=== PATIENT | female | born 1990 | race American Indian/Alaskan Native ===

== ENCOUNTER 2020-04-15 08:50 | Emergency (ER) | payer OTHER ==
[2020-04-15 08:58] VITALS: BP 141/87
[2020-04-15 09:23] LABS: Bacteria,Urine 1+ /HPF (Negative); Bilirubin,Urine NEG (Negative); Blood,Urine LG (Negative); Color,Urine Yellow (Yellow); Mucus,Urine FEW /HPF; Protein,Urine <15 mg/dL mg/dL (Negative); RBC,Urine < 1.0 /HPF (0.0-6.0); Urobilinogen,Urine < 2.0 mg/dL (<2.0)
--- NOTE | 2020-04-15 09:49 | Emergency Department Report ---
ED Female HPI - General Chief complaint: Urogenital-Female Stated complaint: PREG BLEEDING 9WEEKS Time Seen by Provider: 04/15/20 09:12 Source: patient Mode of arrival: Ambulatory Limitations: No Limitations - History of Present Illness Initial comments: This is a 29-year-old -Welsh female who presents to the emergency room with vaginal bleeding during . Patient states she is [address] weeks [address] Baldo cabrera [facility]. She reports noticing blood in her underwear last night and a large amount of hematuria this morning. Her last menstrual period was February 12, 2020, G2, . She denies abdominal pain, back pain, vaginal discharge, urinary frequency, urgency, or dysuria. MD Complaint: vaginal bleeding Onset/Timin -: days(s) Severity scale (0 -10): 0 Improves with: none Worsens with: urination Are you Now?: Yes Last Menstrual Period: 02/12/20 EDC: 11/18/20 Associated Symptoms: denies other symptoms - Related Data Sexually active: Yes : 2 Para: 0 A: 1 () Allergies Allergy/AdvReac Type Severity Reaction Status Date / Time No Known Allergies Allergy Unverified 04/15/20 08:58 ED Review of Systems ROS: Stated complaint: PREG BLEEDING 9WEEKS Other details as noted in HPI Constitutional: denies: chills, fever Respiratory: denies: cough, shortness of breath, wheezing Cardiovascular: denies: chest pain, palpitations Gastrointestinal: denies: abdominal pain, nausea, diarrhea Genitourinary: hematuria. denies: urgency, dysuria, discharge Musculoskeletal: denies: back pain, joint swelling, arthralgia Skin: denies: rash, lesions Neurological: denies: headache, weakness, paresthesias Psychiatric: denies: anxiety, depression ED Past Medical Hx - Past Medical History Previous Medical History?: No - Surgical History Past Surgical History?: No - Social History Smoking Status: Never Smoker Substance Use Type: None ED Physical Exam - General Limitations: No Limitations General appearance: alert, in no apparent distress - Respiratory Respiratory exam: Present: normal lung sounds bilaterally. Absent: respiratory distress - Cardiovascular Cardiovascular Exam: Present: regular rate, normal rhythm. Absent: systolic murmur, diastolic murmur, rubs, gallop - GI/Abdominal GI/Abdominal exam: Present: soft, normal bowel sounds. Absent: distended, tenderness, guarding, rebound, rigid - Extremities Exam Extremities exam: Present: normal inspection - Back Exam Back exam: Absent: CVA tenderness (R), CVA tenderness (L) - Neurological Exam Neurological exam: Present: alert, oriented X3, normal gait - Psychiatric Psychiatric exam: Present: normal affect, normal mood - Skin Skin exam: Present: warm, dry, intact, normal color. Absent: rash ED Course Vital Signs 04/15/20 08:57 Temperature 98.8 F Pulse Rate 100 H Respiratory 15 Rate Blood Pressure 141/87 O2 Sat by Pulse 100 Oximetry ED Medical Decision Making - Lab Data Lab Results 04/15/20 04/15/20 04/15/20 Range/Units 09:06 09:51 09:53 HCG, Quant 7296 H (0-4) mIU/mL Urine Color Yellow (Yellow) Urine Turbidity Clear (Clear) Urine pH 6.0 (5.0-7.0) Ur Specific [place] 1.018 (1.003-1.030) Urine Protein <15 mg/dl (Negative) mg/dL Urine Glucose (UA) Neg (Negative) mg/dL Urine Ketones Neg (Negative) mg/dL Urine Blood Lg (Negative) Urine Nitrite Neg (Negative) Urine Bilirubin Neg (Negative) Urine Urobilinogen < 2.0 (<2.0) mg/dL Ur Leukocyte Esterase Neg (Negative) Urine WBC (Auto) 1.0 (0.0-6.0) /HPF Urine RBC (Auto) < 1.0 (0.0-6.0) /HPF U Epithel Cells (Auto) 3.0 (0-13.0) /HPF Urine Bacteria (Auto) 1+ (Negative) /HPF Urine Mucus Few /HPF Blood Type O POSITIVE Antibody Screen Negative - Radiology Data Radiology results: report reviewed US OB <= 14 weeks fetus, US OB transvaginal INDICATION / CLINICAL INFORMATION: bleeding, 9 wks gest. COMPARISON: None available. FINDINGS: Uterus measures 9 cm. There are 2 anterior uterine fibroids measuring 3.6 and 0.5 cm. There is an intrauterine gestational sac and pole. The crown-rump length measures 14 mm corresponding to a 7 week 4 day gestation. No visualized cardiac activity. A 1.8 cm left ovarian cyst is identified, the ovaries are otherwise normal. IMPRESSION: 1. 7 week 4 day pole without demonstrated cardiac activity at this time. - Medical Decision Making This is a 29-year-old female that presents with vaginal bleeding since last night. Vitals are stable and patient in no acute distress. Denies vaginal discharge, hematuria, or UTI symptoms. Work-up: Urinalysis, urine test, hCG quant, type and screen, and OB ultrasound. Urinalysis unremarkable, hCG quant 7296, and OB ultrasound findings of 7 week 4 day pole without demonstrated cardiac activity at this time. Follow-up with plant maintenance worker Dr. Bailey at [facility] in 2 to 3 days. Instructed to have repeat labs in 2 days to rule out threatened miscarriage. Patient discharged home stable with strict return instructions. Critical care attestation.: If time is entered above; I have spent that time in minutes in the direct care of this critically ill patient, excluding procedure time. ED Disposition Clinical Impression: Vaginal bleeding affecting early , Uterine fibroid in Disposition: DC-01 TO HOME OR SELFCARE Is pt being admited?: No Condition: Stable Instructions: Uterine Fibroids (ED) Additional Instructions: Your hCG quant on today's visit was 7296. Follow-up with an GENERAL REPAIRER from the list provided below. Return to the emergency room if you experience worsening abdominal pain, worsening vaginal bleeding, or back pain. Referrals: GEORGE BAILEY MD [Staff Physician] - 3-5 Days
--- NOTE | 2020-04-15 11:17 | Ultrasound Report ---
US OB <= 14 weeks fetus, US OB transvaginal INDICATION / CLINICAL INFORMATION: bleeding, 9 wks gest. COMPARISON: None available. FINDINGS: Uterus measures 9 cm. There are 2 anterior uterine fibroids measuring 3.6 and 0.5 cm. There is an intrauterine gestational sac and pole. The crown-rump length measures 14 mm corresp onding to a 7 week 4 day gestation. No visualized cardiac activity. A 1.8 cm left ovarian cyst is identified, the ovaries are otherwise normal. IMPRESSION: 1. 7 week 4 day pole without demonstrated cardiac activity at this time. Signer Name: Kashif Solano MD Signed: 04/15/2020 11:13 AM Workstation Name: [id number]
== END 2020-04-15 12:28 | disposition home or self-care (01) ==
LOC: ED 08:50
DX: O34.11 Maternal care for benign tumor of corpus uteri, first trimester (principal); O20.8 Other hemorrhage in early pregnancy; Z3A.01 Less than 8 weeks gestation of pregnancy
CPT/HCPCS: 36415; 76801; 76817; 81001; 84702; 86850; 86900; 86901

== ENCOUNTER 2021-04-12 15:39 | Outpatient (CLI) | payer OTHER, MEDICAID ==
[2021-04-12] MEDS ORDERED: LACTATED RINGERS 1,000 ML IV SCH (15:45)
[2021-04-12] MEDS ORDERED: TERBUTALINE 1 MG/1 ML INJ SUB-Q SCH (16:00)
[2021-04-12 16:19] LABS: Bilirubin,Urine NEG (Negative); Blood,Urine NEG (Negative); Color,Urine Yellow (Yellow); Protein,Urine <15 mg/dL mg/dL (Negative); Urobilinogen,Urine < 2.0 mg/dL (<2.0); WBC,Urine < 1.0 /HPF (0.0-6.0)
[2021-04-12 16:44] VITALS: BP 123/73
== END 2021-04-12 17:11 | disposition home or self-care (01) ==
LOC: TRG 15:39 → APU 15:40 → TRG 17:11
PROVIDERS: ATTEND Obstetrics & Gynecology
DX: Z34.93 Encounter for supervision of normal pregnancy, unspecified, third trimester (principal); Z3A.35 35 weeks gestation of pregnancy
CPT/HCPCS: 59025; 81001

== ENCOUNTER 2021-06-08 21:16 | Inpatient (IN) | payer OTHER, MEDICAID ==
[2021-06-08] MEDS ORDERED: CARBOPROST TROMETHAMINE 250 MCG/1 ML INJ IM PRN (22:37)
[2021-06-08] MEDS ORDERED: NALOXONE 0.4 MG/1 ML INJ IV PRN (22:37)
[2021-06-08] MEDS ORDERED: OXYTOCIN 10 UNIT/1 ML INJ IM PRN (22:37)
[2021-06-08] MEDS ORDERED: LIDOCAINE (2%) 20 MG/1 ML VIAL 20 ML MDV INFILTRATI ONE (22:37)
[2021-06-08] MEDS ORDERED: PROMETHAZINE 25 MG TAB PO PRN (22:37)
[2021-06-08] MEDS ORDERED: LOPERAMIDE 2 MG CAP PO PRN (22:37)
[2021-06-08] MEDS ORDERED: METHYLERGONOVINE MALEATE 0.2 MG/ML VIAL IM PRN (22:37)
[2021-06-08] MEDS ORDERED: ePHEDrine SULFATE 50 MG/1 ML INJ IV PRN (22:37)
[2021-06-08] MEDS ORDERED: ONDANSETRON 4 MG/2 ML INJ IV PRN (22:37)
[2021-06-08] MEDS ORDERED: TERBUTALINE 1 MG/1 ML INJ SUB-Q PRN (22:37)
[2021-06-08] MEDS ORDERED: ACETAMINOPHEN 500 MG TAB PO PRN (22:37)
[2021-06-08] MEDS ORDERED: fentaNYL 100 MCG/2 ML INJ IV PRN (22:37)
[2021-06-08] MEDS ORDERED: miSOPROStol 200 MCG TAB PR PRN (22:37)
[2021-06-08] MEDS ORDERED: MINERAL OIL 30 ML ORAL LIQD PO PRN (22:37)
--- NOTE | 2021-06-08 22:37 | History and Physical Report ---
History of Present Illness Date of examination: 06/08/21 Date of admission: 06/08/21 21:50 Chief complaint: My water broke at 8 pm tonight. History of present illness: EDC Confirmation: 06/14/2021 Gestational Age: 39.1 weeks on admission Past History : 3 Term Births: 0 Premature Births: 0 Living Children: 0 Para: 0 Mult. Births: 0 Prev : 0 Aborta: 0 Elect. Ab: 1 Spont. Ab: 1 Ectopics: 0 # 1 Comments: EAB: Date unknown # 2 Delivery date: 2019 Comments: SAB Past Medical History: Reviewed history and no changes required: Negative Past Medical History Past Surgical History: Reviewed history and no changes required: negative Past Medical History Anesthesia Complications: negative Anemia: negative Autoimmune Disorder: negative Bleeding Disorder: negative Blood Transfusions: negative Breast Disease: negative Diabetes: negative Heart Disease: negative Hypertension: negative Hepatitis/Liver Disease: negative Kidney Disease/UTI: negative Neurologic/Epilepsy/Migraines: negative Phlebitis/Varicosities: negative Psychiatric: negative Pulmonary Disease/Asthma: negative Thyroid Disease: negative Hospitalizations: negative Surgery (Non-sleep technician): negative Abnormal PAP: negative MAURY Exposure: negative Infertility: negative Uterine Anomaly: negative Uterine Surgery (not C/S): negative Other Gynecologic Problems: negative Family Hx: DM: MGM Infection History Hx of STD: none HIV Risk Eval: no Hepatitis B Risk Eval: low risk Personal hx. of genital herpes: no Partner hx. of genital herpes: no Rash, Viral, or Febrile illness since last LMP? no Varicella/Chicken Pox Status: Previous Disease TB Risk: no Genetic History Congenital Heart Defect: Mom: no Dad: no Ro Disease: Mom: no Dad: no Thalassemia Mom: no Dad: no Neural Tube Defect Mom: no Dad: no Down's Syndrome Mom: no Dad: no Phani-Sachs Mom: no Dad: no Sickle Cell Disease/Trait Mom: no Dad: no Hemophilia Mom: no Dad: no Muscular Dystrophy Mom: no Dad: no Cystic Fibrosis Mom: no Dad: no Alex Chorea Mom: no Dad: no Mental Retardation Mom: no Dad: no Fragile X Mom: no Dad: no Other Genetic/Chromosomal Disorder Mom: no Dad: no Child w/other defect Mom: no Dad: no Enviromental Exposures Enviromental Exposures Reviewed Xray Exposure: no Medication, drug, or alcohol use since LMP: no Chemical/Other Exposure: no Exposure to Cat Liter: no Hx of Parvovirus (Fifth Disease): no Occupational Exposure to Children: none 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 Current Allergies (reviewed today): No known allergies Past History Past Medical History: no pertinent history Past Surgical History: no surgical history Family/Genetic History: none Social history: no significant social history - Obstetrical History Expected Date of Delivery: 06/14/21 Actual Gestation: 39 Week(s) 2 Day(s) : 3 Para: 0 Hx # Term Pregnancies: 0 Number of Pregnancies: 0 Spontaneous Abortions: 1 Induced : 1 Number of Living Children: 0 Medications and Allergies Allergies Allergy/AdvReac Type Severity Reaction Status Date / Time No Known Allergies Allergy Verified 04/12/21 15:41 Home Medications Medication Instructions Recorded Confirmed Last Taken Type No Known Home Medications [No 06/08/21 06/08/21 Unknown History Reported Home Medications] Review of Systems All systems: negative - Vital Signs Vital signs: Vital Signs Temp Pulse Resp BP Pulse Ox 98.9 F 103 H 18 150/88 99 06/08/21 21:37 06/08/21 21:37 06/08/21 21:37 06/08/21 21:37 06/08/21 21:37 Temp Pulse Resp BP Pulse Ox 98.9 F 104 H 18 139/93 100 06/08/21 21:37 06/08/21 22:20 06/08/21 21:37 06/08/21 22:11 06/08/21 22:20 - Physical Exam Breasts: Positive: deferred Cardiovascular: Regular rate Lungs: Positive: Normal air movement Abdomen: Positive: normal appearance, soft Genitourinary (Female): Positive: normal external genitalia, normal perenium Vulva: both: normal Uterus: Positive: normal size (For 39.2 wks gestation. ) Extremities: Positive: normal - Obstetrical FHR: category 1 Uterine Contraction Monitor Mode: External Cervical Dilatation: 1 Cervical Effacement Percentage: 20 station: -3 Uterine Contraction Pattern: Regular Uterine Tone Measurement Phase: Resting Uterine Contraction Intensity: Moderate Results Result Diagrams: 06/08/21 23:16 06/08/21 23:16 Abnormal lab results 06/08/21 Range/Units 21:56 Membranes Rupture Positive A (Negative) All other labs normal. GBS NEGATIVE HBsAg Screen Negative Negative *1 RPR Non Reactive Non Reactive *2 Rubella Antibodies, IgG 12.40 index Immune >0.99 *3 Non-immune <0.90 Equivocal 0.90 - 0.99 Immune >0.99 ABO Grouping O *4 Rh Factor Positive *5 Please note: Prior records for this patient's ABO / Rh type are not available for additional verification. Antibody Screen Negative Negative *6 Tests: (3) HB Solu + Rflx [facility] ([id number]) Hemoglobin (Hgb) Solubility Negative Negative *55 Tests: (4) HIV Ag/Ab with Reflex ([id number]) HIV Screen 4th Generation wRfx Non Reactive Non Reactive *56 Tests: (5) HCV Ab w/Rflx to Verification ([id number]) ! HCV Ab <0.1 s/co ratio 0.0-0.9 *57 Tests: (6) Comment: ([id number]) ! Comment: SPRCS *58 Non reactive HCV antibody screen is consistent with no HCV infection, unless recent infection is suspected or other evidence exists to indicate HCV infection. Assessment and Plan A: 30 y.o. @ 39.1 weeks with SROM @ 8pm for clear fluid. Cervical exam: 3. - Patient Problems (1) with 39 completed weeks gestation Current Visit: Yes Status: Acute Plan to address problem: Admit to labor and delivery. Draw admission labs. IV fluid bolus for epidural placement. Anticipate . (2) Rupture of membranes with clear amniotic fluid Current Visit: Yes Status: Acute Plan to address problem: Monitor patient for s/sx of infection, fluid color. Limit the amount of vaginal exams.
[2021-06-08] MEDS ORDERED: LACTATED RINGERS 1,000 ML IV SCH (22:45)
[2021-06-08] MEDS ORDERED: OXYTOCIN DRIP 30 UNITS/500 ML BAG IV SCH ×2 (23:00)
[2021-06-08 23:48] LABS: Hematocrit 36.6 % (30.3-42.9); Hemoglobin 12.4 gm/dl (10.1-14.3); Mean Corpuscular HGB Conc 34 % (30-34); Mean Corpuscular Volume 93 fl (79-97); Platelet Count 201 K/mm3 (140-440); Red Blood Count 3.92 M/mm3 (3.65-5.03); Red Cell Distribution Width 16.3 % (13.2-15.2)
[2021-06-08 23:58] LABS: Alanine Aminotransferase 9 units/L (7-56)
--- NOTE | 2021-06-09 00:05 | Ultrasound Report ---
US OB limited INDICATION: Assess presentation. COMPARISON: None available. FINDINGS: A single live intrauterine is seen in cephalic presentation with a heart rate of 141 bpm. IMPRESSION: Single live intrauterine in cephalic presentation. Signer Name: Rodríguez Avalos MD Signed: 06/09/2021 12:00 AM Workstation Name: [id number]
[2021-06-09] MEDS: BUTORPHANOL 2 MG/1 ML INJ IV PRN ×2 (01:48→04:03)
[2021-06-09 01:59] LABS: Uric Acid 5.4 mg/dL (3.5-7.6)
[2021-06-09] MEDS ORDERED: fentaNYL-BUPIV 2 MCG/ML-0.125% 200 MCG/100 ML BAG EPIDURAL ONE (07:17)
--- NOTE | 2021-06-09 07:28 | Event Note ---
Date: 06/09/21 (Pt requesting epidural. ) Pt is in intense pain from contractions. she is crying, moaning and tensing up her muscles at the time of this note. States that she would like epidural placement. Currently monitor strip is category 1, with contractions q 3-4 minutes. RN states patient is 2/80/-3. She is requesting an epidural at this time. An IV bolus of fluid is going. Awaiting epidural placement. Plan to re evaluate cervix after epidural placement.
--- NOTE | 2021-06-09 08:14 | Anesthesia Consultation ---
Anesthesia Consult and Med Hx Date of service: 06/09/21 - Airway Anesthetic Teeth Evaluation: Good ROM Head & Neck: Adequate Mental/Hyoid Distance: Adequate Mallampati Class: Class II Intubation Access Assessment: Probably Good - Pulmonary Exam CTA: Yes - Cardiac Exam Cardiac Exam: RRR - Pre-Operative Health Status ASA Pre-Surgery Classification: ASA2 Proposed Anesthetic Plan: Epidural - Pulmonary Hx Smoking: No Hx Asthma: No Hx Respiratory Symptoms: No SOB: No COPD: No Home Oxygen Therapy: No Hx Pneumonia: No Hx Sleep Apnea: No - Cardiovascular System Hx Hypertension: No Hx Coronary Artery Disease: No Hx Heart Attack/AMI: No Hx Angina: No Hx Percutaneous Transluminal Coronary Angioplasty (PTCA): No Hx Cardia Arrhythmia: No Hx Pacemaker: No Hx Internal Defibrillator: No Hx Valvular Heart Disease: No Hx Heart Murmur: No Hx Peripheral Vascular Disease: No - Central Nervous System Hx Neuromuscular Disorder: No Hx Seizures: No CVA: No Hx Back Pain: Yes Hx Psychiatric Problems: No - Gastrointestinal Hx Ulcer: No Hx Gastroesophageal Reflux Disease: No - Endocrine Hx Renal Disease: No Hx End Stage Renal Disease: No Hx Cirrhosis: No Hx Liver Disease: No Hx Insulin Dependent Diabetes: No Hx Non-Insulin Dependent Diabetes: No Hx Thyroid Disease: No Hx Hypothyroidism: No Hx Hyperthyroidism: No - Hematic Hx Anemia: No Hx Sickle Cell Disease: No - Other Systems Hx Alcohol Use: Yes (not since ) Hx Substance Use: No Hx Cancer: No Hx Obesity: Yes
[2021-06-09] MEDS ORDERED: ePHEDrine SULFATE 50 MG/1 ML INJ IV PRN (08:18)
[2021-06-09] MEDS ORDERED: NALOXONE 2 MG/2 ML INJ IV PRN (08:18)
--- NOTE | 2021-06-09 08:18 | Progress Note ---
Labor Epidural - Labor Epidural Start Time: 07:35 Stop Time: 07:43 Performed by:: COLBY GARCIA Procedure: Patient is requesting a laboring epidural for laboring pain. Patient IDed, H&P reviewed, all questions and concerns were answered, and consent was signed. Timeout was performed at bedside. Patient in sitting position. Sterile prep and drape was performed. [3] ml of 1% lidocaine skin wheal at L[3]- L [4]. 18- gauge [employer] epidural needle was advanced to loss of resistance with saline technique 8cm. Negative CSF negative blood. Epidural catheter from kit difficult to advance. Replacement Epidural catheter placed with no difficulties to [12] centimeters. [NEGATIVE] Aspiration [NEGATIVE] test dose. Sterile dressing applied. Patient tolerated procedure.
[2021-06-09] MEDS ORDERED: fentaNYL-BUPIV 2 MCG/ML-0.125% 200 MCG/100 ML BAG EPIDURAL SCH (09:00)
--- NOTE | 2021-06-09 09:16 | Progress Note ---
Assessment and Plan A: 30 y.o. @ 39.2 wks in active labor. Cervical exam . Late decelerations that resolved with interventions. P: Pitocin stopped. Will restart in 30 minutes if Category 1 tracing. Continue with labor and delivery care. Anticipate . - Patient Problems (1) with 39 completed weeks gestation Current Visit: Yes Status: Acute (2) Rupture of membranes with clear amniotic fluid Current Visit: Yes Status: Acute Subjective - Subjective Date of service: 06/09/21 (Pt comfortable with epidural placement.) Principal diagnosis: IUP @ 39.2 wks in active labor Objective - Vital Signs Vital Signs: Vital Signs - 12hr 06/08/21 06/08/21 06/08/21 21:37 21:40 21:45 Temperature 98.9 F Pulse Rate 103 H 112 H 103 H Respiratory 18 Rate Blood Pressure 150/88 Blood Pressure 150/88 [Left] O2 Sat by Pulse 99 99 99 Oximetry 06/08/21 06/08/21 06/08/21 21:50 21:55 21:57 Temperature Pulse Rate 112 H 102 H 104 H Respiratory Rate Blood Pressure 129/88 Blood Pressure [Left] O2 Sat by Pulse 100 100 Oximetry 06/08/21 06/08/21 06/08/21 22:00 22:05 22:10 Temperature Pulse Rate 107 H 100 H 104 H Respiratory Rate Blood Pressure Blood Pressure [Left] O2 Sat by Pulse 99 100 100 Oximetry 06/08/21 06/08/21 06/08/21 22:11 22:15 22:20 Temperature Pulse Rate 115 H 109 H 104 H Respiratory Rate Blood Pressure 139/93 Blood Pressure [Left] O2 Sat by Pulse 100 100 Oximetry 06/08/21 06/08/21 06/08/21 23:00 23:05 23:10 Temperature Pulse Rate 103 H 103 H 104 H Respiratory Rate Blood Pressure Blood Pressure [Left] O2 Sat by Pulse 100 100 100 Oximetry 06/08/21 06/08/21 06/08/21 23:15 23:20 23:25 Temperature Pulse Rate 109 H 104 H 98 H Respiratory Rate Blood Pressure Blood Pressure [Left] O2 Sat by Pulse 99 100 99 Oximetry 06/08/21 06/08/21 06/08/21 23:27 23:30 23:35 Temperature Pulse Rate 100 H 99 H 108 H Respiratory Rate Blood Pressure 137/83 Blood Pressure [Left] O2 Sat by Pulse 100 100 Oximetry 06/08/21 06/08/21 06/08/21 23:40 23:42 23:45 Temperature Pulse Rate 97 H 96 H 105 H Respiratory Rate Blood Pressure 125/74 Blood Pressure [Left] O2 Sat by Pulse 97 100 Oximetry 06/08/21 06/08/21 06/08/21 23:50 23:55 23:57 Temperature Pulse Rate 105 H 103 H 98 H Respiratory Rate Blood Pressure 127/77 Blood Pressure [Left] O2 Sat by Pulse 99 99 Oximetry 06/09/21 06/09/21 06/09/21 00:00 00:05 00:10 Temperature Pulse Rate 103 H 100 H 109 H Respiratory Rate Blood Pressure Blood Pressure [Left] O2 Sat by Pulse 99 98 98 Oximetry 06/09/21 06/09/21 06/09/21 00:11 00:15 00:20 Temperature Pulse Rate 96 H 113 H 105 H Respiratory Rate Blood Pressure 141/76 Blood Pressure [Left] O2 Sat by Pulse 99 98 Oximetry 06/09/21 06/09/21 06/09/21 00:25 00:28 00:30 Temperature Pulse Rate 111 H 99 H 103 H Respiratory Rate Blood Pressure 130/75 Blood Pressure [Left] O2 Sat by Pulse 99 99 Oximetry 06/09/21 06/09/21 06/09/21 00:35 00:39 00:40 Temperature Pulse Rate 105 H 48 L 101 H Respiratory Rate Blood Pressure Blood Pressure [Left] O2 Sat by Pulse 97 90 96 Oximetry 06/09/21 06/09/21 06/09/21 00:41 00:45 00:50 Temperature Pulse Rate 105 H 104 H 108 H Respiratory Rate Blood Pressure 125/77 Blood Pressure [Left] O2 Sat by Pulse 98 99 Oximetry 06/09/21 06/09/21 06/09/21 00:55 01:00 01:04 Temperature Pulse Rate 98 H 109 H 114 H Respiratory Rate Blood Pressure Blood Pressure [Left] O2 Sat by Pulse 99 98 89 Oximetry 06/09/21 06/09/21 06/09/21 01:05 01:10 01:15 Temperature Pulse Rate 105 H 110 H 105 H Respiratory Rate Blood Pressure Blood Pressure [Left] O2 Sat by Pulse 98 98 98 Oximetry 06/09/21 06/09/21 06/09/21 01:36 01:41 01:46 Temperature Pulse Rate 118 H 106 H 102 H Respiratory Rate Blood Pressure Blood Pressure [Left] O2 Sat by Pulse 97 100 97 Oximetry 06/09/21 06/09/21 06/09/21 01:51 01:56 02:01 Temperature Pulse Rate 95 H 106 H 108 H Respiratory Rate Blood Pressure Blood Pressure [Left] O2 Sat by Pulse 99 98 98 Oximetry 06/09/21 06/09/21 06/09/21 02:06 02:10 02:11 Temperature Pulse Rate 110 H 112 H 106 H Respiratory Rate Blood Pressure 141/73 Blood Pressure [Left] O2 Sat by Pulse 97 97 Oximetry 06/09/21 06/09/21 06/09/21 02:14 02:16 02:20 Temperature Pulse Rate 120 H 101 H 93 H Respiratory Rate Blood Pressure 126/64 Blood Pressure [Left] O2 Sat by Pulse 94 97 Oximetry 06/09/21 06/09/21 06/09/21 02:21 02:22 02:26 Temperature Pulse Rate 99 H 109 H 99 H Respiratory Rate Blood Pressure Blood Pressure [Left] O2 Sat by Pulse 96 94 96 Oximetry 06/09/21 06/09/21 06/09/21 02:28 02:31 02:35 Temperature 98.2 F Pulse Rate 111 H 108 H Respiratory Rate Blood Pressure Blood Pressure [Left] O2 Sat by Pulse 94 99 Oximetry 06/09/21 06/09/21 06/09/21 02:36 02:41 02:46 Temperature Pulse Rate 105 H 105 H 117 H Respiratory Rate Blood Pressure Blood Pressure [Left] O2 Sat by Pulse 97 95 98 Oximetry 06/09/21 06/09/21 06/09/21 02:50 02:51 02:55 Temperature Pulse Rate 103 H 108 H 105 H Respiratory Rate Blood Pressure 140/85 Blood Pressure [Left] O2 Sat by Pulse 97 94 Oximetry 06/09/21 06/09/21 06/09/21 02:56 03:01 03:06 Temperature Pulse Rate 113 H 108 H 108 H Respiratory Rate Blood Pressure Blood Pressure [Left] O2 Sat by Pulse 97 97 97 Oximetry 06/09/21 06/09/21 06/09/21 03:11 03:16 03:19 Temperature Pulse Rate 104 H 117 H 110 H Respiratory Rate Blood Pressure Blood Pressure [Left] O2 Sat by Pulse 96 93 94 Oximetry 06/09/21 06/09/21 06/09/21 03:21 03:26 03:31 Temperature Pulse Rate 109 H 118 H 112 H Respiratory Rate Blood Pressure 136/79 Blood Pressure [Left] O2 Sat by Pulse 94 99 98 Oximetry 06/09/21 06/09/21 06/09/21 03:36 03:41 03:46 Temperature Pulse Rate 125 H 116 H 111 H Respiratory Rate Blood Pressure Blood Pressure [Left] O2 Sat by Pulse 98 98 97 Oximetry 06/09/21 06/09/21 06/09/21 03:51 03:56 03:58 Temperature Pulse Rate 113 H 105 H 114 H Respiratory Rate Blood Pressure 131/83 Blood Pressure [Left] O2 Sat by Pulse 92 95 91 Oximetry 06/09/21 06/09/21 06/09/21 04:01 04:06 04:08 Temperature Pulse Rate 116 H 113 H 113 H Respiratory Rate Blood Pressure Blood Pressure [Left] O2 Sat by Pulse 98 100 90 Oximetry 06/09/21 06/09/21 06/09/21 04:11 04:13 04:16 Temperature Pulse Rate 99 H 91 H 104 H Respiratory Rate Blood Pressure Blood Pressure [Left] O2 Sat by Pulse 96 93 100 Oximetry 06/09/21 06/09/21 06/09/21 04:19 04:21 04:22 Temperature Pulse Rate 110 H 113 H 108 H Respiratory Rate Blood Pressure 129/89 Blood Pressure [Left] O2 Sat by Pulse 93 98 Oximetry 06/09/21 06/09/21 06/09/21 04:24 04:26 04:29 Temperature Pulse Rate 105 H 92 H 104 H Respiratory Rate Blood Pressure Blood Pressure [Left] O2 Sat by Pulse 93 94 93 Oximetry 06/09/21 06/09/21 06/09/21 04:31 04:35 04:36 Temperature Pulse Rate 89 98 H 87 Respiratory Rate Blood Pressure Blood Pressure [Left] O2 Sat by Pulse 95 92 94 Oximetry 06/09/21 06/09/21 06/09/21 04:40 04:41 04:46 Temperature Pulse Rate 98 H 107 H 104 H Respiratory Rate Blood Pressure Blood Pressure [Left] O2 Sat by Pulse 93 98 94 Oximetry 06/09/21 06/09/21 06/09/21 04:47 04:51 04:53 Temperature Pulse Rate 108 H 107 H 99 H Respiratory Rate Blood Pressure 154/87 Blood Pressure [Left] O2 Sat by Pulse 94 98 93 Oximetry 06/09/21 06/09/21 06/09/21 04:56 04:59 05:01 Temperature Pulse Rate 104 H 91 H 113 H Respiratory Rate Blood Pressure Blood Pressure [Left] O2 Sat by Pulse 95 93 95 Oximetry 06/09/21 06/09/21 06/09/21 05:06 05:11 05:16 Temperature Pulse Rate 91 H 89 109 H Respiratory Rate Blood Pressure Blood Pressure [Left] O2 Sat by Pulse 98 94 100 Oximetry 06/09/21 06/09/21 06/09/21 05:20 05:21 05:26 Temperature Pulse Rate 99 H 115 H 108 H Respiratory Rate Blood Pressure 139/80 Blood Pressure [Left] O2 Sat by Pulse 95 96 Oximetry 06/09/21 06/09/21 06/09/21 05:27 05:31 05:34 Temperature Pulse Rate 106 H 109 H 94 H Respiratory Rate Blood Pressure Blood Pressure [Left] O2 Sat by Pulse 94 94 94 Oximetry 06/09/21 06/09/21 06/09/21 05:36 05:41 05:42 Temperature Pulse Rate 93 H 107 H 100 H Respiratory Rate Blood Pressure Blood Pressure [Left] O2 Sat by Pulse 94 97 94 Oximetry 06/09/21 06/09/21 06/09/21 05:46 05:51 05:55 Temperature Pulse Rate 117 H 97 H 104 H Respiratory Rate Blood Pressure 142/83 Blood Pressure [Left] O2 Sat by Pulse 99 97 94 Oximetry 06/09/21 06/09/21 06/09/21 05:56 06:01 06:06 Temperature Pulse Rate 101 H 101 H 107 H Respiratory Rate Blood Pressure Blood Pressure [Left] O2 Sat by Pulse 99 98 99 Oximetry 06/09/21 06/09/21 06/09/21 06:11 06:16 06:21 Temperature Pulse Rate 114 H 116 H 90 Respiratory Rate Blood Pressure 149/87 Blood Pressure [Left] O2 Sat by Pulse 100 97 94 Oximetry 06/09/21 06/09/21 06/09/21 06:26 06:31 06:32 Temperature Pulse Rate 96 H 96 H 83 Respiratory Rate Blood Pressure Blood Pressure [Left] O2 Sat by Pulse 97 98 93 Oximetry 06/09/21 06/09/21 06/09/21 06:36 06:39 06:41 Temperature Pulse Rate 88 90 116 H Respiratory Rate Blood Pressure Blood Pressure [Left] O2 Sat by Pulse 96 93 97 Oximetry 06/09/21 06/09/21 06/09/21 06:45 06:46 06:51 Temperature Pulse Rate 88 94 H 94 H Respiratory Rate Blood Pressure 141/102 Blood Pressure [Left] O2 Sat by Pulse 92 96 97 Oximetry 06/09/21 06/09/21 06/09/21 06:56 06:59 07:00 Temperature 97.9 F Pulse Rate 112 H 111 H 101 H Respiratory 18 Rate Blood Pressure 120/72 Blood Pressure 120/72 [Left] O2 Sat by Pulse 96 97 Oximetry 06/09/21 06/09/21 06/09/21 07:01 07:03 07:06 Temperature Pulse Rate 113 H 97 H 101 H Respiratory Rate Blood Pressure Blood Pressure [Left] O2 Sat by Pulse 97 94 97 Oximetry 06/09/21 06/09/21 06/09/21 07:09 07:11 07:16 Temperature Pulse Rate 90 116 H 109 H Respiratory Rate Blood Pressure Blood Pressure [Left] O2 Sat by Pulse 91 97 99 Oximetry 06/09/21 06/09/21 06/09/21 07:21 07:24 07:26 Temperature Pulse Rate 106 H 111 H 114 H Respiratory Rate Blood Pressure 138/83 144/87 Blood Pressure [Left] O2 Sat by Pulse 100 95 Oximetry 06/09/21 06/09/21 06/09/21 07:29 07:31 07:36 Temperature Pulse Rate 112 H 115 H 111 H Respiratory Rate Blood Pressure 134/81 128/73 Blood Pressure [Left] O2 Sat by Pulse 96 98 Oximetry 06/09/21 06/09/21 06/09/21 07:39 07:41 07:42 Temperature Pulse Rate 104 H 108 H 110 H Respiratory Rate Blood Pressure 133/79 142/82 Blood Pressure [Left] O2 Sat by Pulse 99 Oximetry 06/09/21 06/09/21 06/09/21 07:45 07:46 07:53 Temperature Pulse Rate 113 H 109 H 100 H Respiratory Rate Blood Pressure 148/87 134/78 Blood Pressure [Left] O2 Sat by Pulse 97 97 Oximetry 06/09/21 06/09/21 06/09/21 07:54 07:57 07:58 Temperature Pulse Rate 99 H 107 H 105 H Respiratory Rate Blood Pressure 131/75 132/86 Blood Pressure [Left] O2 Sat by Pulse 98 Oximetry 06/09/21 06/09/21 06/09/21 08:00 08:03 08:08 Temperature Pulse Rate 103 H 102 H 104 H Respiratory Rate Blood Pressure 137/83 Blood Pressure [Left] O2 Sat by Pulse 98 98 Oximetry 06/09/21 06/09/21 06/09/21 08:13 08:18 08:23 Temperature Pulse Rate 98 H 106 H 94 H Respiratory Rate Blood Pressure Blood Pressure [Left] O2 Sat by Pulse 97 97 97 Oximetry 06/09/21 06/09/21 06/09/21 08:24 08:28 08:30 Temperature Pulse Rate 99 H 95 H 100 H Respiratory Rate Blood Pressure Blood Pressure [Left] O2 Sat by Pulse 93 95 94 Oximetry 06/09/21 06/09/21 06/09/21 08:33 08:34 08:37 Temperature Pulse Rate 94 H 93 H 100 H Respiratory Rate Blood Pressure 102/55 Blood Pressure [Left] O2 Sat by Pulse 96 94 Oximetry 06/09/21 06/09/21 06/09/21 08:38 08:43 08:48 Temperature Pulse Rate 103 H 84 85 Respiratory Rate Blood Pressure Blood Pressure [Left] O2 Sat by Pulse 98 95 98 Oximetry 06/09/21 06/09/21 06/09/21 08:53 08:58 09:03 Temperature Pulse Rate 84 120 H 97 H Respiratory Rate Blood Pressure Blood Pressure [Left] O2 Sat by Pulse 97 97 100 Oximetry 06/09/21 09:05 Temperature Pulse Rate 88 Respiratory Rate Blood Pressure 122/69 Blood Pressure [Left] O2 Sat by Pulse Oximetry - Exam Narrative Exam: Late decelerations noted. Pitocin was turned off and patient was reposition in the bed with resolution of late decelerations. Will continue to monitor monitor strip. Breasts: deferred Cardiovascular: Regular rate Lungs: Normal air movement Abdomen: Present: normal appearance, soft Vulva: both: normal Uterus: Present: normal FHR: category 2 (Late decelerations noted. Pitocin turned off. ) Uterine Contraction Monitor Mode: External Cervical Dilatation: 7 Cervical Effacement Percentage: 90 station: -1 Uterine Contraction Pattern: Regular Uterine Tone Measurement Phase: Resting Uterine Contraction Intensity: Moderate Extremities: normal - Labs Labs: Abnormal Labs 06/08/21 06/08/21 06/08/21 21:56 23:16 23:16 RDW 16.3 H Creatinine 0.5 L Membranes Rupture Positive A Laboratory Results - last 24 hr 06/08/21 06/08/21 06/08/21 21:56 23:16 23:16 WBC 7.1 RBC 3.92 Hgb 12.4 Hct 36.6 MCV 93 MCH 32 MCHC 34 RDW 16.3 H Plt Count 201 Creatinine 0.5 L Estimated GFR > 60 Uric Acid 5.4 AST 18 ALT 9 Lactate Dehydrogenase 170 Membranes Rupture Positive A Syphilis IgG Antibody Blood Type Antibody Screen 06/08/21 06/08/21 23:16 23:16 WBC RBC Hgb Hct MCV MCH MCHC RDW Plt Count Creatinine Estimated GFR Uric Acid AST ALT Lactate Dehydrogenase Membranes Rupture Syphilis IgG Antibody Nonreactive Blood Type O POSITIVE Antibody Screen Negative
[2021-06-09] MEDS ORDERED: BUPIVACAINE/PF (0.25%) 2.5 MG/ML 10 ML VIAL INFILTRATI ONE ×2 (12:59→15:16)
--- NOTE | 2021-06-09 13:06 | Progress Note ---
Assessment and Plan A: 30 y.o. @ 39.2 wks in active labor. Cervical exam . Pitocin restarted and is now as 8mu. P: Continue with Pitocin per protocol. Anticipate . - Patient Problems (1) with 39 completed weeks gestation Current Visit: Yes Status: Acute (2) Rupture of membranes with clear amniotic fluid Current Visit: Yes Status: Acute Subjective - Subjective Date of service: 06/09/21 (Pt feeling some contractions. ) Principal diagnosis: IUP @ 39.2 wks in active labor Patient reports: contractions Objective - Vital Signs Vital Signs: Vital Signs - 12hr 06/09/21 06/09/21 06/09/21 01:04 01:05 01:10 Temperature Pulse Rate 114 H 105 H 110 H Respiratory Rate Blood Pressure Blood Pressure [Left] O2 Sat by Pulse 89 98 98 Oximetry 06/09/21 06/09/21 06/09/21 01:15 01:36 01:41 Temperature Pulse Rate 105 H 118 H 106 H Respiratory Rate Blood Pressure Blood Pressure [Left] O2 Sat by Pulse 98 97 100 Oximetry 06/09/21 06/09/21 06/09/21 01:46 01:51 01:56 Temperature Pulse Rate 102 H 95 H 106 H Respiratory Rate Blood Pressure Blood Pressure [Left] O2 Sat by Pulse 97 99 98 Oximetry 06/09/21 06/09/21 06/09/21 02:01 02:06 02:10 Temperature Pulse Rate 108 H 110 H 112 H Respiratory Rate Blood Pressure 141/73 Blood Pressure [Left] O2 Sat by Pulse 98 97 Oximetry 06/09/21 06/09/21 06/09/21 02:11 02:14 02:16 Temperature Pulse Rate 106 H 120 H 101 H Respiratory Rate Blood Pressure Blood Pressure [Left] O2 Sat by Pulse 97 94 97 Oximetry 06/09/21 06/09/21 06/09/21 02:20 02:21 02:22 Temperature Pulse Rate 93 H 99 H 109 H Respiratory Rate Blood Pressure 126/64 Blood Pressure [Left] O2 Sat by Pulse 96 94 Oximetry 06/09/21 06/09/21 06/09/21 02:26 02:28 02:31 Temperature Pulse Rate 99 H 111 H 108 H Respiratory Rate Blood Pressure Blood Pressure [Left] O2 Sat by Pulse 96 94 99 Oximetry 06/09/21 06/09/21 06/09/21 02:35 02:36 02:41 Temperature 98.2 F Pulse Rate 105 H 105 H Respiratory Rate Blood Pressure Blood Pressure [Left] O2 Sat by Pulse 97 95 Oximetry 06/09/21 06/09/21 06/09/21 02:46 02:50 02:51 Temperature Pulse Rate 117 H 103 H 108 H Respiratory Rate Blood Pressure 140/85 Blood Pressure [Left] O2 Sat by Pulse 98 97 Oximetry 06/09/21 06/09/21 06/09/21 02:55 02:56 03:01 Temperature Pulse Rate 105 H 113 H 108 H Respiratory Rate Blood Pressure Blood Pressure [Left] O2 Sat by Pulse 94 97 97 Oximetry 06/09/21 06/09/21 06/09/21 03:06 03:11 03:16 Temperature Pulse Rate 108 H 104 H 117 H Respiratory Rate Blood Pressure Blood Pressure [Left] O2 Sat by Pulse 97 96 93 Oximetry 06/09/21 06/09/21 06/09/21 03:19 03:21 03:26 Temperature Pulse Rate 110 H 109 H 118 H Respiratory Rate Blood Pressure 136/79 Blood Pressure [Left] O2 Sat by Pulse 94 94 99 Oximetry 06/09/21 06/09/21 06/09/21 03:31 03:36 03:41 Temperature Pulse Rate 112 H 125 H 116 H Respiratory Rate Blood Pressure Blood Pressure [Left] O2 Sat by Pulse 98 98 98 Oximetry 06/09/21 06/09/21 06/09/21 03:46 03:51 03:56 Temperature Pulse Rate 111 H 113 H 105 H Respiratory Rate Blood Pressure 131/83 Blood Pressure [Left] O2 Sat by Pulse 97 92 95 Oximetry 06/09/21 06/09/21 06/09/21 03:58 04:01 04:06 Temperature Pulse Rate 114 H 116 H 113 H Respiratory Rate Blood Pressure Blood Pressure [Left] O2 Sat by Pulse 91 98 100 Oximetry 06/09/21 06/09/21 06/09/21 04:08 04:11 04:13 Temperature Pulse Rate 113 H 99 H 91 H Respiratory Rate Blood Pressure Blood Pressure [Left] O2 Sat by Pulse 90 96 93 Oximetry 06/09/21 06/09/21 06/09/21 04:16 04:19 04:21 Temperature Pulse Rate 104 H 110 H 113 H Respiratory Rate Blood Pressure Blood Pressure [Left] O2 Sat by Pulse 100 93 98 Oximetry 06/09/21 06/09/21 06/09/21 04:22 04:24 04:26 Temperature Pulse Rate 108 H 105 H 92 H Respiratory Rate Blood Pressure 129/89 Blood Pressure [Left] O2 Sat by Pulse 93 94 Oximetry 06/09/21 06/09/21 06/09/21 04:29 04:31 04:35 Temperature Pulse Rate 104 H 89 98 H Respiratory Rate Blood Pressure Blood Pressure [Left] O2 Sat by Pulse 93 95 92 Oximetry 06/09/21 06/09/21 06/09/21 04:36 04:40 04:41 Temperature Pulse Rate 87 98 H 107 H Respiratory Rate Blood Pressure Blood Pressure [Left] O2 Sat by Pulse 94 93 98 Oximetry 06/09/21 06/09/21 06/09/21 04:46 04:47 04:51 Temperature Pulse Rate 104 H 108 H 107 H Respiratory Rate Blood Pressure 154/87 Blood Pressure [Left] O2 Sat by Pulse 94 94 98 Oximetry 06/09/21 06/09/21 06/09/21 04:53 04:56 04:59 Temperature Pulse Rate 99 H 104 H 91 H Respiratory Rate Blood Pressure Blood Pressure [Left] O2 Sat by Pulse 93 95 93 Oximetry 06/09/21 06/09/21 06/09/21 05:01 05:06 05:11 Temperature Pulse Rate 113 H 91 H 89 Respiratory Rate Blood Pressure Blood Pressure [Left] O2 Sat by Pulse 95 98 94 Oximetry 06/09/21 06/09/21 06/09/21 05:16 05:20 05:21 Temperature Pulse Rate 109 H 99 H 115 H Respiratory Rate Blood Pressure 139/80 Blood Pressure [Left] O2 Sat by Pulse 100 95 Oximetry 06/09/21 06/09/21 06/09/21 05:26 05:27 05:31 Temperature Pulse Rate 108 H 106 H 109 H Respiratory Rate Blood Pressure Blood Pressure [Left] O2 Sat by Pulse 96 94 94 Oximetry 06/09/21 06/09/21 06/09/21 05:34 05:36 05:41 Temperature Pulse Rate 94 H 93 H 107 H Respiratory Rate Blood Pressure Blood Pressure [Left] O2 Sat by Pulse 94 94 97 Oximetry 06/09/21 06/09/21 06/09/21 05:42 05:46 05:51 Temperature Pulse Rate 100 H 117 H 97 H Respiratory Rate Blood Pressure 142/83 Blood Pressure [Left] O2 Sat by Pulse 94 99 97 Oximetry 06/09/21 06/09/21 06/09/21 05:55 05:56 06:01 Temperature Pulse Rate 104 H 101 H 101 H Respiratory Rate Blood Pressure Blood Pressure [Left] O2 Sat by Pulse 94 99 98 Oximetry 06/09/21 06/09/21 06/09/21 06:06 06:11 06:16 Temperature Pulse Rate 107 H 114 H 116 H Respiratory Rate Blood Pressure Blood Pressure [Left] O2 Sat by Pulse 99 100 97 Oximetry 06/09/21 06/09/21 06/09/21 06:21 06:26 06:31 Temperature Pulse Rate 90 96 H 96 H Respiratory Rate Blood Pressure 149/87 Blood Pressure [Left] O2 Sat by Pulse 94 97 98 Oximetry 06/09/21 06/09/21 06/09/21 06:32 06:36 06:39 Temperature Pulse Rate 83 88 90 Respiratory Rate Blood Pressure Blood Pressure [Left] O2 Sat by Pulse 93 96 93 Oximetry 06/09/21 06/09/21 06/09/21 06:41 06:45 06:46 Temperature Pulse Rate 116 H 88 94 H Respiratory Rate Blood Pressure Blood Pressure [Left] O2 Sat by Pulse 97 92 96 Oximetry 06/09/21 06/09/21 06/09/21 06:51 06:56 06:59 Temperature Pulse Rate 94 H 112 H 111 H Respiratory Rate Blood Pressure 141/102 120/72 Blood Pressure [Left] O2 Sat by Pulse 97 96 Oximetry 06/09/21 06/09/21 06/09/21 07:00 07:01 07:03 Temperature 97.9 F Pulse Rate 101 H 113 H 97 H Respiratory 18 Rate Blood Pressure Blood Pressure 120/72 [Left] O2 Sat by Pulse 97 97 94 Oximetry 06/09/21 06/09/21 06/09/21 07:06 07:09 07:11 Temperature Pulse Rate 101 H 90 116 H Respiratory Rate Blood Pressure Blood Pressure [Left] O2 Sat by Pulse 97 91 97 Oximetry 06/09/21 06/09/21 06/09/21 07:16 07:21 07:24 Temperature Pulse Rate 109 H 106 H 111 H Respiratory Rate Blood Pressure 138/83 144/87 Blood Pressure [Left] O2 Sat by Pulse 99 100 Oximetry 06/09/21 06/09/21 06/09/21 07:26 07:29 07:31 Temperature Pulse Rate 114 H 112 H 115 H Respiratory Rate Blood Pressure 134/81 Blood Pressure [Left] O2 Sat by Pulse 95 96 Oximetry 06/09/21 06/09/21 06/09/21 07:36 07:39 07:41 Temperature Pulse Rate 111 H 104 H 108 H Respiratory Rate Blood Pressure 128/73 133/79 Blood Pressure [Left] O2 Sat by Pulse 98 99 Oximetry 06/09/21 06/09/21 06/09/21 07:42 07:45 07:46 Temperature Pulse Rate 110 H 113 H 109 H Respiratory Rate Blood Pressure 142/82 148/87 Blood Pressure [Left] O2 Sat by Pulse 97 Oximetry 06/09/21 06/09/21 06/09/21 07:53 07:54 07:57 Temperature Pulse Rate 100 H 99 H 107 H Respiratory Rate Blood Pressure 134/78 131/75 132/86 Blood Pressure [Left] O2 Sat by Pulse 97 Oximetry 06/09/21 06/09/21 06/09/21 07:58 08:00 08:03 Temperature Pulse Rate 105 H 103 H 102 H Respiratory Rate Blood Pressure 137/83 Blood Pressure [Left] O2 Sat by Pulse 98 98 Oximetry 06/09/21 06/09/21 06/09/21 08:08 08:13 08:18 Temperature Pulse Rate 104 H 98 H 106 H Respiratory Rate Blood Pressure Blood Pressure [Left] O2 Sat by Pulse 98 97 97 Oximetry 06/09/21 06/09/21 06/09/21 08:23 08:24 08:28 Temperature Pulse Rate 94 H 99 H 95 H Respiratory Rate Blood Pressure Blood Pressure [Left] O2 Sat by Pulse 97 93 95 Oximetry 06/09/21 06/09/21 06/09/21 08:30 08:33 08:34 Temperature Pulse Rate 100 H 94 H 93 H Respiratory Rate Blood Pressure 102/55 Blood Pressure [Left] O2 Sat by Pulse 94 96 Oximetry 06/09/21 06/09/21 06/09/21 08:37 08:38 08:43 Temperature Pulse Rate 100 H 103 H 84 Respiratory Rate Blood Pressure Blood Pressure [Left] O2 Sat by Pulse 94 98 95 Oximetry 06/09/21 06/09/21 06/09/21 08:48 08:53 08:58 Temperature Pulse Rate 85 84 120 H Respiratory Rate Blood Pressure Blood Pressure [Left] O2 Sat by Pulse 98 97 97 Oximetry 06/09/21 06/09/21 06/09/21 09:03 09:05 09:08 Temperature Pulse Rate 97 H 88 85 Respiratory Rate Blood Pressure 122/69 Blood Pressure [Left] O2 Sat by Pulse 100 100 Oximetry 06/09/21 06/09/21 06/09/21 09:13 09:18 09:23 Temperature Pulse Rate 93 H 119 H 96 H Respiratory Rate Blood Pressure Blood Pressure [Left] O2 Sat by Pulse 100 98 98 Oximetry 06/09/21 06/09/21 06/09/21 09:28 09:33 09:34 Temperature Pulse Rate 89 90 90 Respiratory Rate Blood Pressure 106/58 Blood Pressure [Left] O2 Sat by Pulse 97 98 Oximetry 06/09/21 06/09/21 06/09/21 09:38 09:43 09:48 Temperature Pulse Rate 90 97 H 80 Respiratory Rate Blood Pressure Blood Pressure [Left] O2 Sat by Pulse 99 97 99 Oximetry 06/09/21 06/09/21 06/09/21 09:53 09:58 10:00 Temperature 98.2 F Pulse Rate 89 93 H Respiratory Rate Blood Pressure Blood Pressure [Left] O2 Sat by Pulse 99 97 Oximetry 06/09/21 06/09/21 06/09/21 10:03 10:06 10:08 Temperature Pulse Rate 88 82 89 Respiratory Rate Blood Pressure 118/65 Blood Pressure [Left] O2 Sat by Pulse 97 99 Oximetry 06/09/21 06/09/21 06/09/21 10:13 10:18 10:23 Temperature Pulse Rate 85 102 H 99 H Respiratory Rate Blood Pressure Blood Pressure [Left] O2 Sat by Pulse 99 98 99 Oximetry 06/09/21 06/09/21 06/09/21 10:28 10:33 10:34 Temperature Pulse Rate 84 84 76 Respiratory Rate Blood Pressure 118/60 Blood Pressure [Left] O2 Sat by Pulse 99 98 Oximetry 06/09/21 06/09/21 06/09/21 10:38 10:43 10:48 Temperature Pulse Rate 84 94 H 78 Respiratory Rate Blood Pressure Blood Pressure [Left] O2 Sat by Pulse 98 98 99 Oximetry 06/09/21 06/09/21 06/09/21 10:49 10:53 10:58 Temperature Pulse Rate 99 H 83 80 Respiratory Rate Blood Pressure Blood Pressure [Left] O2 Sat by Pulse 94 98 98 Oximetry 06/09/21 06/09/21 06/09/21 11:03 11:04 11:08 Temperature Pulse Rate 94 H 97 H 97 H Respiratory Rate Blood Pressure 118/69 Blood Pressure [Left] O2 Sat by Pulse 99 100 Oximetry 06/09/21 06/09/21 06/09/21 11:09 11:13 11:18 Temperature 99.9 F H Pulse Rate 102 H 87 Respiratory Rate Blood Pressure Blood Pressure [Left] O2 Sat by Pulse 100 99 Oximetry 06/09/21 06/09/21 06/09/21 11:23 11:28 11:33 Temperature Pulse Rate 95 H 91 H 92 H Respiratory Rate Blood Pressure Blood Pressure [Left] O2 Sat by Pulse 97 98 97 Oximetry 06/09/21 06/09/21 06/09/21 11:35 11:38 11:43 Temperature Pulse Rate 95 H 95 H 111 H Respiratory Rate Blood Pressure 117/64 Blood Pressure [Left] O2 Sat by Pulse 98 99 Oximetry 06/09/21 06/09/21 06/09/21 11:48 11:53 11:58 Temperature Pulse Rate 110 H 103 H 104 H Respiratory Rate Blood Pressure Blood Pressure [Left] O2 Sat by Pulse 100 99 98 Oximetry 06/09/21 06/09/21 06/09/21 12:03 12:05 12:08 Temperature Pulse Rate 98 H 101 H 94 H Respiratory Rate Blood Pressure 120/72 Blood Pressure [Left] O2 Sat by Pulse 99 100 Oximetry 06/09/21 06/09/21 06/09/21 12:13 12:18 12:21 Temperature 98.7 F Pulse Rate 103 H 103 H Respiratory Rate Blood Pressure Blood Pressure [Left] O2 Sat by Pulse 100 100 Oximetry 06/09/21 06/09/21 06/09/21 12:23 12:28 12:33 Temperature Pulse Rate 116 H 98 H 103 H Respiratory Rate Blood Pressure Blood Pressure [Left] O2 Sat by Pulse 100 97 95 Oximetry 06/09/21 06/09/21 06/09/21 12:34 12:38 12:40 Temperature Pulse Rate 107 H 106 H 102 H Respiratory Rate Blood Pressure 109/70 Blood Pressure [Left] O2 Sat by Pulse 97 94 Oximetry 06/09/21 06/09/21 06/09/21 12:43 12:46 12:48 Temperature Pulse Rate 98 H 108 H 106 H Respiratory Rate Blood Pressure Blood Pressure [Left] O2 Sat by Pulse 97 94 95 Oximetry 06/09/21 06/09/21 12:53 12:58 Temperature Pulse Rate 108 H 108 H Respiratory Rate Blood Pressure Blood Pressure [Left] O2 Sat by Pulse 98 98 Oximetry - Exam Narrative Exam: Pt repositioned in bed. Discussed labor progress. Pitocin was restarted and is now @ 8mu. Breasts: deferred Cardiovascular: Regular rate Lungs: Normal air movement Abdomen: Present: normal appearance, soft Vulva: both: normal Uterus: Present: normal FHR: category 1 (Early decelerations noted. ) Uterine Contraction Monitor Mode: External Cervical Dilatation: 8 Cervical Effacement Percentage: 90 station: -1 Uterine Contraction Pattern: Regular Uterine Tone Measurement Phase: Resting Uterine Contraction Intensity: Moderate Extremities: normal - Labs Labs: Abnormal Labs 06/08/21 06/08/21 06/08/21 21:56 23:16 23:16 RDW 16.3 H Creatinine 0.5 L Membranes Rupture Positive A Laboratory Results - last 24 hr 06/08/21 06/08/21 06/08/21 21:56 23:16 23:16 WBC 7.1 RBC 3.92 Hgb 12.4 Hct 36.6 MCV 93 MCH 32 MCHC 34 RDW 16.3 H Plt Count 201 Creatinine 0.5 L Estimated GFR > 60 Uric Acid 5.4 AST 18 ALT 9 Lactate Dehydrogenase 170 Membranes Rupture Positive A Syphilis IgG Antibody Blood Type Antibody Screen 06/08/21 06/08/21 23:16 23:16 WBC RBC Hgb Hct MCV MCH MCHC RDW Plt Count Creatinine Estimated GFR Uric Acid AST ALT Lactate Dehydrogenase Membranes Rupture Syphilis IgG Antibody Nonreactive Blood Type O POSITIVE Antibody Screen Negative
[2021-06-09] MEDS ORDERED: AMPICILLIN/NS 2 GM/100 ML 2 GM/100 ML BAG IV ONE (14:24)
--- NOTE | 2021-06-09 15:12 | Event Note ---
Date: 06/09/21 (Unchanged cervical exam. ) Discussed with patient labor progress. At this point in her labor she has been 8//-1 for about 3.5 hours. We discussed that this baby may be too big for her pelvis. We also discussed putting in internals to see how adequate her contractions are. Pt refused. She prefers that we re-examine her cervix in a few hours. We will re-check at 0430pm. Pt is open to a . States" whatever you guys have to do then I'm okay with it." Dr. Currie updated on patient's labor progress.
--- NOTE | 2021-06-09 17:05 | Event Note ---
Date: 06/09/21 Cervical exam at 1645 d/t speaking with the patient at length regarding POC. Her cervical exam was unchanged from the previous exam. I spoke with patient and her family for the second time at length regarding labor progress. At the time of the first conversation the patient stated that she was open to a if her cervical exam remained the same and she refused internal monitoring. During this recent conversation, the patient now states she wants to wait and try different positions. Patient's mother and FOC in room persuading patient to wait. I strongly again recommended a at this time d/t time of rupture which was explained to the patient increases the risk for infection, no change in cervical exam, and failure of the baby's head to descend in her pelvis. Patient again stated that she would like to try different positions. While speaking the patient's mother stated " We are going to pray about this." Pt will be given an additional 30 minutes (will check at 515pm) to try different positions and if no cervical change, then she will be prepped for a . Pt agrees to this plan.
--- NOTE | 2021-06-09 17:49 | Event Note ---
Date: 06/09/21 (Pt being prepped for . ) Cervical exam remains unchanged. Again a was strongly recommended. Pt states that she was afraid of a and this was the reason why she wanted to wait. Explained to patient about the procedure for the , recovery time after , and what will happen during the period after the . Pt now wants to proceed with a . Pre op orders placed. Consents on chart. Dr. Rosey san.
[2021-06-09] MEDS ORDERED: LIDOCAINE 2%/EPINEPHRINE 1:200,000 VIAL (20 ML) INFILTRATI ONE ×2 (17:50→18:22)
[2021-06-09] MEDS ORDERED: KETOROLAC 30 MG/1 ML INJ ONE (18:00)
[2021-06-09] MEDS ORDERED: HYDROmorphone 1 MG/1 ML INJ IV PRN ×2 (18:07)
[2021-06-09] MEDS ORDERED: NALOXONE 0.4 MG/1 ML INJ IV PRN ×2 (18:07→22:05)
[2021-06-09] MEDS ORDERED: ONDANSETRON 4 MG/2 ML INJ IV PRN ×2 (18:07→22:05)
--- NOTE | 2021-06-09 18:07 | Anesthesia Day of Surgery ---
Anesthesia Day of Surgery - Day of Surgery Patient Examined: Yes Patient H&P Reviewed: Yes Patient is NPO: Yes Beta Blockers: No Cardiac Clearance: No Pulmonary Clearance: No Lucas's Test: Negative
[2021-06-09] MEDS ORDERED: SODIUM BICARB 8.4% 50 MEQ/50 ML VIAL IV ONE (18:18)
--- NOTE | 2021-06-09 18:18 | Event Note ---
Date: 06/09/21 Patient informed the risks of the surgery include bleeding possibly bleeding heavy enough to require blood transfusion, infection possible damage to bowel bladder ureter. All questions answered. Patient agrees to proceed
[2021-06-09] MEDS ORDERED: ONDANSETRON 4 MG/2 ML INJ ONE ×2 (18:23)
[2021-06-09] MEDS ORDERED: ceFAZolin/STERILE WATER 2 GM/20 ML SYRINGE IV ONE (18:25)
[2021-06-09] MEDS ORDERED: FAMOTIDINE 20 MG/2 ML INJ IV ONE (18:30)
[2021-06-09] MEDS ORDERED: BICITRA ORAL LIQD 30ML PO ONE (18:30)
[2021-06-09] MEDS ORDERED: METOCLOPRAMIDE 10 MG/2 ML INJ IV ONE (18:34)
[2021-06-09] MEDS ORDERED: AMPICILLIN/NS 1 GM/50 ML 1 GM/50 ML BAG IV SCH (19:00)
[2021-06-09] MEDS ORDERED: BUPIVACAINE/PF (0.25%) 2.5 MG/ML 30 ML VIAL INFILTRATI ONE ×2 (19:03)
[2021-06-09] MEDS ORDERED: dexAMETHasone 20 MG/5 ML VIAL ONE (19:03)
--- NOTE | 2021-06-09 19:26 | Operative Report ---
Operative Report Operative Report: Date of procedure: June 09, 2021 Pre-operative diagnosis: Intrauterine at 38 weeks with premature rupture membranes, arrest of descent and dilatation and prolonged rupture membranes Post-operative diagnosis: Same plus leiomyomata and left ovarian cyst Procedure name(s): Primary low transverse section and drainage of left ovarian cyst Surgeon: Benito Currie MD Motor Brakeman: Sandra Andrews CST Anesthesia: Epidural EBL: QBL 708 cc Complications: None Findings: Patient with a normal uterus normal right ovary normal fallopian tubes bilaterally had approximately 7cm left ovarian cyst was drained clear fluid. A fundal leiomyomata approximately 4 cm in diameter. Male infant weight 8 pounds 0 ounces Apgars 8 at 1 minute and 9 at 5 minutes Specimen(s): None Procedure: The patient was brought to the operating room. Her epidural was dosed was placed without any complications. She was then placed in left lateral tilt. Prepped and draped in the usual sterile manner. After testing for adequate anesthesia level, a Pfannenstiel incision was made. This incision was taken down to the fascia. The fascia was then nicked in the midline. This incision was extended out laterally with Waldrop scissors. The fascia was then sharply and bluntly from the underlying rectus muscles. The rectus muscles were bluntly and sharply . The peritoneum was then entered with the asphalt surface heater operator's fingers. This incision was spread vertically with care not to damage the bladder below. The Kushal self-retaining tractor was then placed without any difficulty. The bladder flap was then formed sharply and bluntly with Metzenbaum scissors. A transverse incision was made in lower uterine segment. This incision was extended laterally with the operators fingers. The amniotic sac was then entered bluntly with the asphalt surface heater operator's fingers. The was delivered from the vertex position. Bulb suction on the mother's abdomen. Cord was double clamped and cut. The was then passed to the nursery personnel who were in attendance. The above scores were given by the nursery personnel. The placenta was then bluntly removed. The uterus was then externalized and wiped clean the remaining products. The uterine and ovarian findings as noted above. The uterine incision was closed in layers. The first incision was closed in a locking manner using 0 Vicryl. This was followed by imbricating stitch also with 0 Vicryl. This closure was hemostatic. The bladder flap was copiously irrigated and found to be hemostatic. The pelvis was copiously irrigated and found to be hemostatic. The left ovarian cyst was punctured with the Bovie with clear fluid. The uterus was then placed back to the patient's abdomen. The retractors were removed. The rectus muscles were inspected and found to be hemostatic. The fascia was then closed in a running manner using 0 Vicryl. This incision was hemostatic irrigation Bovie. The skin was reapproximated with 4-0 Vicryl subcuticularly. The patient tolerated procedure well. Her urine was clear. The was admitted to the well baby nursery. The patient was accompanied to recovery room in good condition. Instrument count correct times 3.
--- NOTE | 2021-06-09 19:46 | Progress Note ---
Regional Anesthesia Block - Regional Anesthesia Block Start Time: 19:20 Stop Time: 19:29 Performed By:: COLBY GARCIA Procedure: Patient consented for TAP block for post surgical pain management. Patient identified, monitors placed, and time out performed. TAP identified bilaterally via ultrasound. Skin prepped bilaterally with [chlorhexidine] and [22g stimuplex] needle advanced to the TAP. [Marcaine 0.25% 30ml] injected under ultrasound guidance on the [left] side. [Marcaine 0.25% 30ml] injected under ultrasound guidance on the [right] side. Negative aspiration every 5mL, No change in heart rate or rhythm. Patient tolerated the procedure well. No apparent complications seen.
[2021-06-09] MEDS ORDERED: OXYTOCIN DRIP 30 UNITS/500 ML BAG IV SCH (22:05)
[2021-06-09] MEDS ORDERED: MAGNESIUM HYDROXIDE (MOM) ORAL LIQD UDC PO PRN (22:05)
[2021-06-09] MEDS ORDERED: LANOLIN/ZINC/DIMETHICONE (LANSINOH) 7 GM TP PRN (22:05)
[2021-06-09] MEDS ORDERED: HYDROcodone/ACETAMINOPHEN 5-325 MG TAB PO PRN (22:05)
[2021-06-09] MEDS ORDERED: SIMETHICONE 80 MG CHEW TAB PO PRN (22:05)
[2021-06-09] MEDS ORDERED: ACETAMINOPHEN 325 MG TAB PO PRN (22:05)
[2021-06-09] MEDS ORDERED: WITCH HAZEL/ GLYCERIN PAD TP PRN (22:05)
[2021-06-09] MEDS ORDERED: D5W/LACTATED RINGERS 1,000 ML IV SCH (22:05)
[2021-06-09] MEDS: KETOROLAC 30 MG/1 ML INJ IV SCH (23:04)
[2021-06-10] MEDS ORDERED: ceFAZolin/NS 1 GM/50 ML 1 GM/50 ML BAG IV SCH ×2 (02:00→13:30)
[2021-06-10] MEDS: KETOROLAC 30 MG/1 ML INJ IV SCH ×3 (06:29→18:46)
[2021-06-10 09:12] LABS: Hematocrit 30.1 % (30.3-42.9); Hemoglobin 10.1 gm/dl (10.1-14.3)
[2021-06-10] MEDS: PRENATAL VIT27-FE FUMARATE-FOLIC ACID VIT TAB PO SCH (10:24)
[2021-06-10] MEDS: FERROUS SULFATE 325 MG TAB PO SCH (10:24)
--- NOTE | 2021-06-10 11:52 | Progress Note ---
Assessment and Plan Pt sitting in bed with family member holding infant at bedside. Pt reports recent herman catheter removal and ambulating to the sink x1 without difficulty; pt reports no void attempted yet. Pt states cramping pain felt only with and having difficulty expressing breast milk. assistance and education given. Pt reports pain well controlled with medications as ordered and denies all further complaints at this time. Postop H&H 10.1/30.1, VSS, incision dry, clean and intact, fundus firm with scant vaginal bleeding noted on pad; Pt reports desires for circumcision. POC d/w pt and family. Precautions given. Continue postop pathway. - Patient Problems (1) delivery delivered Current Visit: Yes Status: Acute Subjective - Subjective Date of service: 06/10/21 Principal diagnosis: POD #1, s/p C/S Patient reports: appetite normal, pain well controlled, ambulating normally, other (herman removed but first void unattempted ), no dizzy ambulation, no nauseated : doing well, nursing well Objective - Vital Signs Latest vital signs: Vital Signs Temp Pulse Resp BP BP Pulse Ox 06/10/21 07:57 91 H 131/89 98 06/10/21 06:29 14 06/10/21 05:07 98.3 F 94 H 18 124/82 100 06/10/21 02:18 98.1 F 83 18 123/86 99 06/09/21 23:04 12 06/09/21 20:30 94 H 18 116/83 98 06/09/21 20:15 98.5 F 93 H 17 112/70 97 06/09/21 20:00 83 20 129/76 98 06/09/21 19:45 97 H 18 113/44 97 06/09/21 19:30 89 18 126/75 96 06/09/21 19:25 89 20 125/70 97 06/09/21 19:20 94 H 18 126/72 98 06/09/21 19:15 98.5 F 94 H 19 123/65 97 06/09/21 18:05 80 99 06/09/21 17:41 104 H 100 06/09/21 17:36 115 H 100 06/09/21 17:32 113 H 89 06/09/21 17:31 109 H 100 06/09/21 17:26 102 H 100 06/09/21 17:22 98.7 F 101 H 14 113/63 100 06/09/21 17:21 101 H 100 06/09/21 17:16 88 98 06/09/21 17:11 90 99 06/09/21 17:08 92 H 113/63 06/09/21 17:06 102 H 121/68 100 06/09/21 16:53 104 H 99 06/09/21 16:48 100 H 100 06/09/21 16:43 110 H 100 06/09/21 16:39 100 H 131/83 06/09/21 16:38 106 H 100 06/09/21 16:35 113 H 79 L 06/09/21 16:33 101 H 99 06/09/21 16:28 109 H 98 06/09/21 16:23 104 H 97 06/09/21 16:18 109 H 98 06/09/21 16:13 112 H 98 06/09/21 16:08 108 H 98 06/09/21 16:06 141 H 109/64 06/09/21 16:03 117 H 112/73 96 06/09/21 16:00 121 H 117/72 06/09/21 15:58 117 H 98 06/09/21 15:57 123 H 118/74 06/09/21 15:54 123 H 121/75 06/09/21 15:53 124 H 98 06/09/21 15:48 133 H 95 06/09/21 15:43 108 H 96 06/09/21 15:38 111 H 98 06/09/21 15:34 105 H 124/72 06/09/21 15:33 109 H 96 06/09/21 15:29 117 H 94 06/09/21 15:28 109 H 96 06/09/21 15:23 113 H 96 06/09/21 15:18 113 H 97 06/09/21 15:13 123 H 97 06/09/21 15:08 105 H 97 06/09/21 15:05 116 H 137/84 06/09/21 15:03 103 H 95 06/09/21 15:00 98.2 F 06/09/21 14:58 115 H 99 06/09/21 14:53 111 H 98 06/09/21 14:48 107 H 98 06/09/21 14:43 118 H 98 06/09/21 14:38 122 H 97 06/09/21 14:35 112 H 133/83 06/09/21 14:33 111 H 97 06/09/21 14:28 110 H 99 06/09/21 14:23 112 H 97 06/09/21 14:18 111 H 98 06/09/21 14:13 123 H 98 06/09/21 14:08 113 H 98 06/09/21 14:05 102 H 139/66 06/09/21 14:03 105 H 98 06/09/21 13:58 110 H 96 06/09/21 13:53 102 H 97 06/09/21 13:48 112 H 99 06/09/21 13:43 110 H 144/70 97 06/09/21 13:38 105 H 97 06/09/21 13:37 107 H 94 06/09/21 13:35 117 H 156/91 06/09/21 13:33 113 H 96 06/09/21 13:28 113 H 97 06/09/21 13:23 107 H 96 06/09/21 13:18 108 H 96 06/09/21 13:13 107 H 96 06/09/21 13:08 104 H 95 06/09/21 13:05 109 H 155/93 06/09/21 13:03 105 H 97 06/09/21 12:58 108 H 98 06/09/21 12:53 108 H 98 06/09/21 12:48 106 H 95 06/09/21 12:46 108 H 94 06/09/21 12:43 98 H 97 06/09/21 12:40 102 H 94 06/09/21 12:38 106 H 97 06/09/21 12:34 107 H 109/70 06/09/21 12:33 103 H 95 06/09/21 12:28 98 H 97 06/09/21 12:23 116 H 100 06/09/21 12:21 98.7 F 06/09/21 12:18 103 H 100 06/09/21 12:13 103 H 100 06/09/21 12:08 94 H 100 06/09/21 12:05 101 H 120/72 06/09/21 12:03 98 H 99 06/09/21 11:58 104 H 98 06/09/21 11:53 103 H 99 Intake and Output 06/09/21 06/10/21 06/10/21 23:59 07:59 15:59 Intake Total 1138.533 420 Output Total 2049 1050 Balance -911.467 -630 Intake: IV 1138.533 PITOCin/NS 30 UNIT/500ML 38.533 30 units In 500 ml @ 2 mls/hr IV TITR JUHI Rx#: [id number] Intake, Free Water 420 Output: Urine 0 1050 Indwelling Catheter 600 1050 Uretheral (Herman) 625 Other: Total, Output Amount 600 250 Estimated Blood Loss 708 - Exam Breasts: Present: normal Cardiovascular: Present: Regular rate Lungs: Present: Normal air movement Abdomen: Present: normal appearance, soft Vulva: both: normal Uterus: Present: normal, firm Extremities: Present: normal Incision: Present: normal, dry, intact. Absent: dressed - Labs Labs: Abnormal lab results 06/10/21 Range/Units 08:46 Hct 30.1 L D (30.3-42.9) %
--- NOTE | 2021-06-10 15:03 | Post Anesthesia Evaluation ---
- Post Anesthesia Evaluation Patient Participated: Yes Airway Patent: Yes Stable Respiratory Function: Yes Nausea/Vomiting: No Temp > 96.8F: Yes Pain Manageable: Yes Adequeate Hydration: Yes Anesthesia Complications: No Block Receding Appropriately: Yes Patient on Ventilator: No
[2021-06-11] MEDS: HYDROcodone/ACETAMINOPHEN 5-325 MG TAB PO PRN ×2 (02:50→08:10)
--- NOTE | 2021-06-11 07:20 | Discharge Summary ---
Providers - Providers Date of Admission: 06/08/21 21:50 Date of discharge: 06/11/21 (pt desires d/c) Attending physician: TAMARA JAMES 06/09/21 22:05 Consult to Slicing Machine Operator [CONS] Routine Reason For Exam: Primary care physician: TAMARA JAMES Hospitalization Reason for admission: active labor, IUP at term Delivery: Procedure: primary low transverse Episiotomy: none Laceration: none Incision: normal, dry, intact Other procedures: none complications: none Discharge diagnosis: IUP at term delivered [place] baby: male Hospital course: uncomplicated primary section due to arrest of descent and dilatation Pt alert and oriented No c/o voiced. VSS FF below umb Lochia scant. H&H stable 09/14 No s/sx of anemia. Doing well s/p c/s. P: d/c today with instructions. RTO 1 week postop and circ RX on chart. Condition at discharge: Good Disposition: DC- TO HOME OR SELFCARE - Discharge Diagnoses (1) delivery delivered Status: Acute Comment: RTO 1 week postop Plan - Discharge Medications Prescriptions: Lidocain2.5%/Prilocai2.5% [Emla] 5 gm TP ONCE #1 tube Ferrous Sulfate [Feosol 325 MG tab] 325 mg PO BID #60 tablet Ibuprofen [Motrin] 800 mg PO TID PRN #30 tablet PRN Reason: Pain oxyCODONE /ACETAMINOPHEN [Percocet 5/325 mg] 1 - 2 tab PO Q6HR PRN #20 tablet PRN Reason: Pain - Provider Discharge Summary Activity: routine, no sex for 6 weeks, no heavy lifting 4 weeks, no strenuous exercise Diet: routine Instructions: routine Additional instructions: [] Smoking cessation referral if applicable(refer to patient education folder for contact #) [] Refer to [facility] Booklet Call your doctor immediately for: * Fever > 100.5 * Heavy vaginal bleeding ( >1 pad per hour) * Severe persistent headache * Shortness of breath * Reddened, hot, painful area to leg or breast * Drainage or odor from incision. * Keep incision clean and dry at all times and follow doctor's instructions regarding bathing/showering - Follow up plan Follow up: TAMARA JAMES MD [Primary Care Provider] - 7 Days (Congratulations! Please call [phone] to schedule your postoperative visit and your son's circumcision in 1 week. Bring the EMLA cream with you to his visit. Do NOT use at home. Call with any headache, not relieved with Tylenol, blurred vision, chest pain. Take medications as instructed. Call with any concerns. )
[2021-06-11] MEDS: IBUPROFEN 600 MG TAB PO PRN ×2 (07:39→13:14)
[2021-06-11] MEDS: PRENATAL VIT27-FE FUMARATE-FOLIC ACID VIT TAB PO SCH (10:13)
[2021-06-11] MEDS: FERROUS SULFATE 325 MG TAB PO SCH (10:13)
[2021-06-11 14:02] VITALS: BP 128/85
== END 2021-06-11 14:23 | disposition home or self-care (01) | DRG 788 ==
LOC: TRG 21:16 → APU 21:25 → OBSVTOIN 21:50 → TRG 21:50 → LD 21:50 → OB 06-09 21:59
PROVIDERS: ADMIT Obstetrics & Gynecology; ATTEND Obstetrics & Gynecology
PROC: 10D00Z1 Extraction of Products of Conception, Low, Open Approach (ICD-10-PCS; principal; 2021-06-09)
PROC: 0U910ZZ Drainage of Left Ovary, Open Approach (ICD-10-PCS; 2021-06-09)
PROC: 3E0T3BZ Introduction of Anesthetic Agent into Peripheral Nerves and Plexi, Percutaneous Approach (ICD-10-PCS; 2021-06-09)
DX: O62.0 Primary inadequate contractions (principal); O42.90 Premature rupture of membranes, unspecified as to length of time between rupture and onset of labor, unspecified weeks of gestation; Z3A.38 38 weeks gestation of pregnancy; Z37.0 Single live birth; Z20.822 Contact with and (suspected) exposure to COVID-19; O34.13 Maternal care for benign tumor of corpus uteri, third trimester; D25.9 Leiomyoma of uterus, unspecified; O34.83 Maternal care for other abnormalities of pelvic organs, third trimester; N83.202 Unspecified ovarian cyst, left side
CPT/HCPCS: 36415; 59025; 76815; 82565; 83615; 84112; 84450; 84460; 84550; 85014; 85018; 85027; 86592; 86850; 86900; 86901; 99211; G0378; G0463; J0290; J0595; J0690; J1100; J1885; J2405; J2590; J3010; J7120; J7121; U0003

== ENCOUNTER 2021-06-13 15:15 | Inpatient (IN) | payer OTHER, MEDICAID ==
[2021-06-13] MEDS ORDERED: ONDANSETRON 4 MG/2 ML INJ IV PRN (15:25)
[2021-06-13] MEDS ORDERED: ACETAMINOPHEN 325 MG TAB PO PRN (15:25)
[2021-06-13] MEDS ORDERED: DOCUSATE SODIUM 100 MG CAP PO PRN (15:25)
[2021-06-13] MEDS ORDERED: MAGNESIUM SULFATE 4 GM/100 ML BAG IV ONE (15:28)
[2021-06-13] MEDS ORDERED: LACTATED RINGERS 1,000 ML IV SCH (15:30)
--- NOTE | 2021-06-13 15:44 | History and Physical Report ---
<LUIS LONG - Last Filed: 06/13/21 15:40> History of Present Illness Date of examination: 06/13/21 (sent from office with swelling and elevated BP PP) Chief complaint: swelling Not feeling well Breast engorgement History of present illness: Pt came into office today with overall not feeling well, sweeling in legs and breasts. Had c/s 06-09-21 was d/c on Thursday06-11-21. Vital Signs: Patient Profile: 30 Years Old Female Height: 61 inches Weight: 192 pounds BMI: 36.27 Temp: 98.2 degrees F forehead BP sittin / 90 (left arm) Menstrual History: LMP - Character: no menses since del Serial Vital Signs/Assessments: Time Position BP Pulse Resp Temp By 140/90 Armando Doran Past History Past Surgical History: section - Obstetrical History : 3 Para: 1 Hx # Term Pregnancies: 1 Number of Pregnancies: 0 Spontaneous Abortions: 1 Induced : 1 Medications and Allergies Allergies Allergy/AdvReac Type Severity Reaction Status Date / Time No Known Allergies Allergy Verified 06/09/21 09:22 Home Medications Medication Instructions Recorded Confirmed Last Taken Type Ferrous Sulfate [Feosol 325 MG tab] 325 mg PO BID #60 tablet 06/09/21 Unknown Rx Ibuprofen [Motrin] 800 mg PO TID PRN #30 tablet 06/09/21 Unknown Rx Lidocain2.5%/Prilocai2.5% [Emla] 5 gm TP ONCE #1 tube 06/09/21 Unknown Rx oxyCODONE /ACETAMINOPHEN [Percocet 1 - 2 tab PO Q6HR PRN #20 tablet 06/09/21 Unknown Rx 5/325 mg] Active Meds: Active Medications Acetaminophen (Acetaminophen 325 Mg Tab) 650 mg PO Q4H PRN PRN Reason: Pain MILD(1-3)/Fever >100.5/CÁRDENAS Docusate Sodium (Docusate Sodium 100 Mg Cap) 100 mg PO Q12H PRN PRN Reason: Constipation Lactated Ringer's (Lactated Ringers) 1,000 mls @ 125 mls/hr IV DIRECT JUHI Magnesium Sulfate (Magnesium Sulfate 4gm/100ml) 4 gm in 100 mls @ 300 mls/hr IV ONCE ONE Stop: 06/13/21 15:47 Magnesium Sulfate (Magnesium Sulfate 40gm/1000ml) 40 gm in 1,000 mls @ 50 mls/hr IV DIRECT JUHI Multivitamins/Iron/Calcium ( [id number] Fumarate-Folic Acid Vit Tab) 1 each PO QDAY JUHI Ondansetron HCl (Ondansetron 4 Mg/2 Ml Inj) 4 mg IV Q6H PRN PRN Reason: Nausea And Vomiting Review of Systems All systems: negative Constitutional: sweats, fatigue, weakness Eyes: irritation Breasts: swelling, pain, , engorged Psychiatric: anxiety - Physical Exam Breasts: Positive: engorged Cardiovascular: Regular rate, Normal S1, Normal S2 Lungs: Positive: Clear to auscultation Abdomen: Positive: normal appearance, soft, normal bowel sounds. Negative: distention, tenderness Genitourinary (Female): Positive: normal external genitalia Vulva: both: normal Vagina: Positive: normal moisture. Negative: discharge Cervix: Negative: lesion, discharge Uterus: Positive: normal size, normal contour Adnexa: both: normal Anus/Rectum: Positive: normal perianal skin, heme negative. Negative: rectal mass, hemorrhoids Extremities: Positive: edema Deep Tendon Reflex Grade: Normal +2 Results All other labs normal. Pt's blood type O+ Assessment and Plan - Patient Problems (1) with 39 completed weeks gestation Onset Date: ~06/13/21 Status: Acute Plan to address problem: 30yo Had primary section 06-09-21. Presented to office today with swelling in feet and legs and breast engorgement. BP 140/90 X 2 Overall malaise and anxiety. Instructed to go to [facility] for admission for mgt of PP PreE. Pt agreed to plan but was upset. Dr Soler notified. All orders in EMR <SELWYN JOHNSON - Last Filed: 06/13/21 16:02> History of Present Illness Date of admission: 06/13/21 15:39 History of present illness: Repeat BP by HAND INSERTER OPERATOR 145/90. Denied CÁRDENAS, vision changes, chest pain, or swelling in hands or face. Medications and Allergies Active Meds: Active Medications Acetaminophen (Acetaminophen 325 Mg Tab) 650 mg PO Q4H PRN PRN Reason: Pain MILD(1-3)/Fever >100.5/CÁRDENAS Docusate Sodium (Docusate Sodium 100 Mg Cap) 100 mg PO Q12H PRN PRN Reason: Constipation Lactated Ringer's (Lactated Ringers) 1,000 mls @ 125 mls/hr IV DIRECT JUHI Magnesium Sulfate (Magnesium Sulfate 40gm/1000ml) 40 gm in 1,000 mls @ 50 mls/hr IV DIRECT JUHI Multivitamins/Iron/Calcium ( [id number] Fumarate-Folic Acid Vit Tab) 1 each PO QDAY JUHI Ondansetron HCl (Ondansetron 4 Mg/2 Ml Inj) 4 mg IV Q6H PRN PRN Reason: Nausea And Vomiting Results All other labs normal.
[2021-06-13] MEDS ORDERED: hydrALAZINE 20 MG/1 ML INJ IV ONE (16:51)
[2021-06-13] MEDS ORDERED: EMLA CREAM 5 GM TP ONE (17:00)
[2021-06-13 17:16] LABS: Hematocrit 32.6 % (30.3-42.9); Hemoglobin 11.1 gm/dl (10.1-14.3); Mean Corpuscular HGB Conc 34 % (30-34); Mean Corpuscular Volume 93 fl (79-97); Platelet Count 230 K/mm3 (140-440); Red Blood Count 3.49 M/mm3 (3.65-5.03); Red Cell Distribution Width 16.1 % (13.2-15.2)
[2021-06-13] MEDS: MAGNESIUM SULFATE 40GM/1000ML 40 GM/1,000 ML BAG IV SCH (17:21)
[2021-06-13 17:41] LABS: Bilirubin,Urine NEG (Negative); Blood,Urine LG (Negative); Color,Urine Yellow (Yellow); Protein,Urine <15 mg/dL mg/dL (Negative); Urobilinogen,Urine < 2.0 mg/dL (<2.0)
[2021-06-13 17:56] LABS: Alanine Aminotransferase 79 units/L (7-56); Uric Acid 5.7 mg/dL (3.5-7.6)
--- NOTE | 2021-06-13 19:45 | Event Note ---
Date: 06/13/21 CNM to BS. Pt denies CÁRDENAS, vision changes, and RUQ pain at this time. Physical exam significant for 2+ pitting edema noted on BLE and breast engorgement. Respirations clear to auscultation and pt without distress; and family member in room with pt. POC reviewed. All questions and concerns addressed. Continue Magnesium Sulfate IV and close monitoring for changes in status, administer antihypertensives per Dr. Currie orders. Dr. Currie aware.
[2021-06-14] MEDS ORDERED: ACETAMINOPHEN 325 MG TAB PO PRN (07:04)
[2021-06-14] MEDS ORDERED: ACETAMINOPHEN 500 MG TAB PO PRN (08:00)
--- NOTE | 2021-06-14 08:03 | Progress Note ---
Assessment and Plan A: 30 y.o. re admission d/t pre eclampsia. S/P primary , POD #5. - Patient Problems (1) Pre-eclampsia, Current Visit: Yes Status: Acute Plan to address problem: Continue with magnesium infusion. Due to be stopped @1700. Watch for worsening s/sx of pre eclampsia. Magnesium levels ordered q 6 hrs. Subjective - Subjective Date of service: 06/14/21 (Pt doing well. ) Principal diagnosis: Re-admission for pre eclampsia s/p primary c- section, POD#5 Patient reports: pain well controlled, flatus, other : doing well (In room with mother. No issues. ) Objective - Vital Signs Latest vital signs: Vital Signs Temp Pulse Resp BP Pulse Ox Pulse Ox 06/14/21 08:01 91 H 100 06/14/21 07:56 81 100 06/14/21 07:54 86 120/81 06/14/21 07:51 91 H 98 06/14/21 07:46 89 98 06/14/21 07:41 84 98 06/14/21 07:39 85 141/76 06/14/21 07:36 88 97 06/14/21 07:31 87 99 06/14/21 07:26 97 H 98 06/14/21 07:24 102 H 141/63 06/14/21 07:21 106 H 99 06/14/21 07:16 102 H 98 06/14/21 07:11 108 H 99 06/14/21 07:09 105 H 135/59 06/14/21 07:06 112 H 99 06/14/21 07:01 104 H 99 06/14/21 06:56 103 H 99 06/14/21 06:54 101 H 135/63 06/14/21 06:51 104 H 99 06/14/21 06:46 112 H 99 06/14/21 06:41 102 H 99 06/14/21 06:36 105 H 99 06/14/21 06:31 96 H 98 06/14/21 06:26 95 H 98 06/14/21 06:23 93 H 134/73 06/14/21 06:21 99 H 97 06/14/21 06:16 106 H 97 06/14/21 06:11 96 H 98 06/14/21 06:08 97 H 129/72 06/14/21 06:06 99 H 97 06/14/21 06:01 107 H 100 06/14/21 05:56 95 H 98 06/14/21 05:53 93 H 119/70 06/14/21 05:52 94 H 91 06/14/21 05:51 90 98 06/14/21 05:46 97 H 97 06/14/21 05:43 99 06/14/21 05:41 95 H 99 06/14/21 05:40 98 H 91 06/14/21 05:38 90 119/70 06/14/21 05:36 88 93 06/14/21 05:32 87 94 06/14/21 05:31 86 99 06/14/21 05:26 93 H 98 06/14/21 05:23 90 126/74 06/14/21 05:21 102 H 99 06/14/21 05:16 105 H 99 06/14/21 05:11 111 H 98 06/14/21 05:09 103 H 119/68 06/14/21 05:06 101 H 98 06/14/21 05:01 113 H 98 06/14/21 04:56 109 H 99 06/14/21 04:54 108 H 130/65 06/14/21 04:51 111 H 99 06/14/21 04:46 109 H 99 06/14/21 04:41 107 H 99 06/14/21 04:38 103 H 121/71 06/14/21 04:36 110 H 99 06/14/21 04:31 107 H 98 06/14/21 04:26 112 H 98 06/14/21 04:23 106 H 120/70 06/14/21 04:21 112 H 98 06/14/21 04:16 109 H 98 06/14/21 04:11 112 H 98 06/14/21 04:09 109 H 124/73 06/14/21 04:06 116 H 98 06/14/21 04:01 115 H 99 06/14/21 03:56 116 H 99 06/14/21 03:54 109 H 119/79 06/14/21 03:51 113 H 99 06/14/21 03:46 109 H 99 06/14/21 03:41 102 H 100 06/14/21 03:39 104 H 126/83 06/14/21 03:36 103 H 99 06/14/21 03:31 102 H 100 06/14/21 03:26 93 H 99 06/14/21 03:24 90 131/84 06/14/21 03:21 88 99 06/14/21 03:16 98.8 F 97 H 100 06/14/21 03:11 91 H 99 06/14/21 03:08 92 H 144/88 06/14/21 03:06 100 H 100 06/14/21 03:01 105 H 100 06/14/21 02:57 96 H 141/84 06/14/21 02:56 105 H 99 06/14/21 02:51 102 H 98 06/14/21 02:46 88 98 06/14/21 02:41 87 98 06/14/21 02:38 91 H 133/78 06/14/21 02:36 91 H 98 06/14/21 02:31 86 97 06/14/21 02:26 91 H 98 06/14/21 02:24 93 H 129/78 06/14/21 02:21 92 H 99 06/14/21 02:16 88 98 06/14/21 02:11 86 98 06/14/21 02:09 86 128/73 06/14/21 02:06 100 H 99 06/14/21 02:02 100 06/14/21 02:01 86 98 06/14/21 01:56 93 H 99 06/14/21 01:53 91 H 136/79 06/14/21 01:51 90 99 06/14/21 01:46 86 98 06/14/21 01:41 88 99 06/14/21 01:39 87 129/75 06/14/21 01:36 93 H 99 06/14/21 01:31 99 H 99 06/14/21 01:26 97 H 99 06/14/21 01:24 96 H 134/78 06/14/21 01:21 106 H 100 06/14/21 01:16 101 H 99 06/14/21 01:11 101 H 100 06/14/21 01:09 95 H 122/62 06/14/21 01:06 102 H 100 06/14/21 01:01 96 H 100 06/14/21 00:56 92 H 99 06/14/21 00:54 103 H 141/79 06/14/21 00:51 85 99 06/14/21 00:46 91 H 98 06/14/21 00:41 90 98 06/14/21 00:39 90 141/83 06/14/21 00:36 88 98 06/14/21 00:31 85 100 06/14/21 00:26 84 98 06/14/21 00:24 82 144/88 06/14/21 00:21 84 98 06/14/21 00:16 83 98 06/14/21 00:11 101 H 99 06/14/21 00:09 83 145/92 06/14/21 00:06 78 98 06/14/21 00:01 91 H 99 06/13/21 23:56 86 99 06/13/21 23:54 90 151/73 06/13/21 23:51 93 H 98 06/13/21 23:46 88 98 06/13/21 23:41 89 98 06/13/21 23:39 90 124/63 06/13/21 23:36 92 H 98 06/13/21 23:31 89 98 06/13/21 23:26 94 H 97 06/13/21 23:24 90 140/67 06/13/21 23:21 94 H 98 06/13/21 23:16 96 H 98 06/13/21 23:11 98 H 99 06/13/21 23:08 93 H 127/82 06/13/21 23:06 95 H 99 06/13/21 23:01 95 H 99 06/13/21 22:56 99 H 99 06/13/21 22:53 100 H 128/74 06/13/21 22:51 109 H 99 06/13/21 22:46 112 H 99 06/13/21 22:41 98 H 99 06/13/21 22:38 99 H 121/67 06/13/21 22:36 102 H 99 06/13/21 22:31 101 H 99 06/13/21 22:26 96 H 99 06/13/21 22:24 100 H 121/69 06/13/21 22:21 98 H 99 06/13/21 22:16 103 H 99 06/13/21 22:11 104 H 99 06/13/21 22:09 94 H 121/69 06/13/21 22:06 101 H 98 06/13/21 22:01 97 H 99 06/13/21 21:56 108 H 99 06/13/21 21:53 101 H 127/72 06/13/21 21:51 106 H 99 06/13/21 21:46 112 H 99 06/13/21 21:41 107 H 99 06/13/21 21:38 100 H 125/74 06/13/21 21:36 106 H 100 06/13/21 21:31 107 H 99 06/13/21 21:26 103 H 100 06/13/21 21:23 100 H 126/70 06/13/21 21:21 101 H 99 06/13/21 21:16 102 H 100 06/13/21 21:11 96 H 100 06/13/21 21:09 94 H 125/75 06/13/21 21:06 104 H 100 06/13/21 21:01 103 H 100 06/13/21 20:56 101 H 99 06/13/21 20:51 95 H 100 06/13/21 20:46 108 H 100 06/13/21 20:42 92 H 138/89 06/13/21 20:41 94 H 100 06/13/21 20:36 91 H 100 06/13/21 20:31 87 98 06/13/21 20:26 91 H 98 06/13/21 20:24 88 145/82 06/13/21 20:21 99 H 100 06/13/21 20:16 95 H 99 06/13/21 20:11 98 H 99 06/13/21 20:09 102 H 125/82 06/13/21 20:06 96 H 100 06/13/21 20:01 87 99 06/13/21 19:56 99 H 100 06/13/21 19:54 86 93 06/13/21 19:53 86 141/87 06/13/21 19:51 89 100 06/13/21 19:46 90 99 06/13/21 19:41 94 H 99 06/13/21 19:39 88 135/81 06/13/21 19:36 90 100 06/13/21 19:31 96 H 100 06/13/21 19:26 85 100 100 06/13/21 19:23 90 144/85 06/13/21 19:21 86 100 06/13/21 19:16 79 98 07/29/21 19:11 78 99 06/13/21 19:08 80 148/90 06/13/21 19:06 84 100 06/13/21 19:01 90 99 06/13/21 18:56 83 100 06/13/21 18:53 82 145/87 06/13/21 18:51 85 100 06/13/21 18:46 82 99 06/13/21 18:41 82 100 06/13/21 18:38 85 145/86 06/13/21 18:36 84 100 06/13/21 18:23 84 147/93 06/13/21 18:08 83 145/90 06/13/21 17:53 86 140/87 06/13/21 17:38 82 148/91 06/13/21 17:30 99 F 16 06/13/21 17:23 86 144/87 06/13/21 17:10 101.9 F H 16 06/13/21 17:08 82 159/97 06/13/21 17:02 77 157/97 06/13/21 16:55 74 176/105 06/13/21 16:54 74 176/105 06/13/21 16:38 73 171/101 06/13/21 16:23 78 179/104 06/13/21 16:17 76 178/100 06/13/21 16:09 77 177/107 Intake and Output 06/13/21 06/14/21 06/14/21 22:59 06:59 14:59 Intake Total 240 Output Total 1500 1600 Balance -1260 -1600 Intake: Oral 240 Output: Urine 1500 1600 Indwelling Catheter 1500 1600 Other: Total, Intake Amount 240 Total, Output Amount 1500 250 Weight 192 lb - Exam Narrative Exam: Pt denies CÁRDENAS, blurred vision, spots before her eyes, chest pain, upper abdominal pain, and shortness of breath. We discussed should any of these symptoms occur, she must tell the RN immediately. Breasts: Present: Cardiovascular: Present: Normal S1, Normal S2 Lungs: Present: Clear to auscultation Abdomen: Present: normal appearance, soft Vulva: both: normal Uterus: Present: normal, firm Extremities: Present: edema (+2 edema to lower extremitites.) Deep Tendon Reflex Grade: Normal +2 Incision: Present: normal, dry, intact, other (open to air, no s/sx of infection, no drainage noted.) - Labs Labs: Abnormal lab results 06/13/21 06/13/21 06/13/21 Range/Units 20:33 Unknown Unknown RBC 3.49 L (3.65-5.03) M/mm3 RDW 16.1 H (13.2-15.2) % Creatinine (0.6-1.2) mg/dL Magnesium 3.90 H (1.7-2.3) mg/dL AST (5-40) units/L ALT (7-56) units/L Lactate Dehydrogenase (91-180) units/L Urine WBC (Auto) 68.0 H (0.0-6.0) /HPF 06/13/21 06/14/21 Range/Units Unknown 03:16 RBC (3.65-5.03) M/mm3 RDW (13.2-15.2) % Creatinine 0.5 L (0.6-1.2) mg/dL Magnesium 4.70 H (1.7-2.3) mg/dL AST 86 H (5-40) units/L ALT 79 H (7-56) units/L Lactate Dehydrogenase 429 H (91-180) units/L Urine WBC (Auto) (0.0-6.0) /HPF
[2021-06-14] MEDS: PRENATAL VIT27-FE FUMARATE-FOLIC ACID VIT TAB PO SCH (11:56)
[2021-06-14] MEDS: MAGNESIUM SULFATE 40GM/1000ML 40 GM/1,000 ML BAG IV SCH (13:32)
[2021-06-14] MEDS: IBUPROFEN 800 MG TAB PO PRN (17:48)
[2021-06-14] MEDS: HYDROcodone/ACETAMINOPHEN 5-325 MG TAB PO PRN (20:30)
[2021-06-14] MEDS ORDERED: diphenhydrAMINE 25 MG CAP PO PRN (23:43)
[2021-06-15] MEDS: HYDROcodone/ACETAMINOPHEN 5-325 MG TAB PO PRN ×2 (03:53→21:32)
--- NOTE | 2021-06-15 04:41 | Event Note ---
Date: 06/15/21 (Pt states she can't sleep, elevated blood pressures) Received a call from RN that patient had some elevated blood pressures. RN also states that patient is walking around in the room, up to the bathroom multiple times, seems to have some anxiety, and is stating that she wants to leave the hospital today. Upon entering the room, patient was pacing in the room. Was able to get the patient to sit down. Her blood pressure ranges have been 140- 160's/90's. We discussed the need to increase Labetalol to 300mg twice daily and continue to monitor her blood pressures. We also discussed why she needs continued monitoring of her blood pressures: risk of stroke, seizures, even . Pt verbalized understanding and states that she will let us continue to monitor status at this time.
[2021-06-15] MEDS: PRENATAL VIT27-FE FUMARATE-FOLIC ACID VIT TAB PO SCH (09:00)
--- NOTE | 2021-06-15 11:34 | Progress Note ---
Assessment and Plan - Patient Problems (1) Pre-eclampsia, Current Visit: Yes Status: Acute Plan to address problem: -will con't with the labetalol 300bid -re-evalute 24hr after mag has been off and if not in sever ranges will d/c to home with f/u in the office in one week. (2) delivery delivered Current Visit: No Status: Acute Subjective - Subjective Date of service: 06/15/21 Principal diagnosis: Re-admission for pre eclampsia s/p primary c- section, POD#5 Interval history: Pt resting in bed. Pt support person states she just was able to fall asleep. Provider did not awake pt. I did d/w support the plan to monitor bps for the balance of the day on the higher dosage of labetalol and if falling in the not severe ranges ie <160s/100s we will consider d/c this pm. She expressed understanding. Objective - Vital Signs Latest vital signs: Vital Signs Temp Pulse Resp BP BP Pulse Ox Pulse Ox 06/15/21 08:59 71 147/83 06/15/21 08:30 98.1 F 71 20 147/85 96 96 06/15/21 07:45 81 100 06/15/21 07:42 80 L 06/15/21 07:40 71 100 06/15/21 07:38 70 123/68 06/15/21 07:35 73 100 06/15/21 07:30 75 100 06/15/21 07:25 68 100 06/15/21 07:20 81 96 06/15/21 07:19 69 93 06/15/21 07:15 68 100 06/15/21 07:11 70 94 06/15/21 07:10 72 100 06/15/21 07:08 71 152/79 06/15/21 07:05 67 97 06/15/21 07:00 65 98 06/15/21 06:55 68 96 06/15/21 06:50 69 95 06/15/21 06:45 69 99 06/15/21 06:40 65 96 06/15/21 06:38 70 160/85 92 06/15/21 06:35 67 97 06/15/21 06:30 64 97 06/15/21 06:25 68 97 06/15/21 06:20 65 98 06/15/21 06:15 65 98 07/31/21 06:10 67 100 06/15/21 06:08 71 159/80 06/15/21 06:07 85 83 L 06/15/21 06:05 81 100 06/15/21 06:00 89 99 06/15/21 05:49 67 97 06/15/21 05:44 72 98 06/15/21 05:39 64 99 06/15/21 05:38 66 157/81 06/15/21 05:34 71 99 06/15/21 05:29 68 98 06/15/21 05:24 67 98 06/15/21 05:19 73 97 06/15/21 05:14 67 98 06/15/21 05:09 65 98 06/15/21 05:08 67 175/91 06/15/21 05:05 66 190/103 06/15/21 05:04 65 99 06/15/21 04:33 73 100 06/15/21 04:28 79 98 06/15/21 04:23 70 100 06/15/21 04:18 67 100 06/15/21 04:13 69 100 06/15/21 04:08 66 100 06/15/21 04:03 67 99 06/15/21 03:58 76 97 06/15/21 03:53 73 20 98 06/15/21 03:51 68 91 06/15/21 03:50 98.5 F 20 06/15/21 03:49 73 157/96 06/15/21 03:48 71 164/95 06/15/21 03:47 69 99 06/14/21 23:45 98.2 F 77 20 141/86 06/14/21 23:41 84 99 06/14/21 23:36 84 99 06/14/21 23:31 88 99 06/14/21 23:26 87 98 06/14/21 23:21 88 99 06/14/21 23:16 86 98 06/14/21 23:11 83 98 06/14/21 23:06 74 99 06/14/21 23:01 84 99 06/14/21 22:56 68 99 06/14/21 22:51 64 99 06/14/21 22:46 66 99 06/14/21 22:41 65 99 06/14/21 22:36 78 99 06/14/21 22:31 75 99 06/14/21 22:26 71 100 06/14/21 22:21 82 99 06/14/21 21:43 71 168/94 06/14/21 20:58 80 90 06/14/21 20:56 63 98 06/14/21 20:51 73 97 06/14/21 20:46 62 98 06/14/21 20:41 68 98 06/14/21 20:36 77 99 06/14/21 20:31 79 97 06/14/21 20:30 18 06/14/21 20:26 63 162/96 99 06/14/21 20:25 75 93 06/14/21 20:21 62 97 06/14/21 20:19 64 164/100 06/14/21 20:16 66 97 06/14/21 20:11 77 97 06/14/21 20:06 81 99 06/14/21 20:01 71 99 06/14/21 19:56 85 98 06/14/21 19:51 80 99 06/14/21 19:46 70 99 06/14/21 19:41 88 99 06/14/21 19:36 87 98 06/14/21 19:31 77 98 06/14/21 19:30 98.0 F 20 99 06/14/21 19:26 84 99 06/14/21 19:21 82 151/83 99 06/14/21 19:20 82 163/82 06/14/21 19:16 85 98 06/14/21 19:11 90 99 06/14/21 19:06 76 98 06/14/21 19:01 77 98 06/14/21 18:56 82 98 06/14/21 18:51 84 98 06/14/21 18:46 85 98 06/14/21 18:41 86 98 06/14/21 18:36 92 H 98 06/14/21 18:01 79 99 06/14/21 17:56 96 H 99 06/14/21 17:51 87 99 06/14/21 17:46 82 99 06/14/21 17:41 89 98 06/14/21 17:36 90 99 06/14/21 17:33 69 L 06/14/21 17:31 89 99 06/14/21 17:26 91 H 99 06/14/21 17:21 84 99 06/14/21 17:20 92 H 146/76 06/14/21 17:16 91 H 97 06/14/21 17:11 88 98 06/14/21 17:06 89 99 06/14/21 17:01 101 H 98 06/14/21 16:56 85 99 06/14/21 16:51 86 99 06/14/21 16:46 86 97 06/14/21 16:41 83 98 06/14/21 16:36 74 97 06/14/21 16:31 78 97 06/14/21 16:28 77 94 06/14/21 16:26 75 95 06/14/21 16:21 91 H 97 06/14/21 16:19 75 130/74 06/14/21 16:16 77 97 06/14/21 16:11 86 97 06/14/21 16:06 98.3 F 76 18 95 06/14/21 16:01 84 98 06/14/21 15:56 79 97 06/14/21 15:51 75 97 06/14/21 15:46 76 99 06/14/21 15:41 79 96 06/14/21 15:36 83 97 06/14/21 15:31 82 97 06/14/21 15:26 79 97 06/14/21 15:21 79 97 06/14/21 15:19 83 137/74 06/14/21 15:16 81 98 06/14/21 15:11 95 H 98 06/14/21 15:06 90 98 06/14/21 15:01 93 H 98 06/14/21 14:56 93 H 98 06/14/21 14:51 100 H 98 06/14/21 14:46 97 H 99 06/14/21 14:41 90 99 06/14/21 14:36 89 100 06/14/21 14:31 89 100 06/14/21 14:26 90 99 06/14/21 14:21 95 H 99 06/14/21 14:20 93 H 126/78 06/14/21 14:16 96 H 100 06/14/21 14:11 93 H 100 06/14/21 14:06 92 H 99 06/14/21 14:01 81 98 06/14/21 13:56 80 99 06/14/21 13:51 76 98 06/14/21 13:46 81 97 06/14/21 13:41 83 100 06/14/21 13:36 77 99 06/14/21 13:31 76 97 06/14/21 13:26 82 99 06/14/21 13:21 84 99 06/14/21 13:19 75 130/79 06/14/21 13:16 76 98 06/14/21 13:11 78 99 06/14/21 13:06 81 99 06/14/21 13:01 80 99 06/14/21 12:56 86 100 06/14/21 12:51 82 99 06/14/21 12:46 87 100 06/14/21 12:41 82 100 06/14/21 12:36 81 100 06/14/21 12:31 87 100 06/14/21 12:26 92 H 100 06/14/21 12:21 87 100 06/14/21 12:20 83 142/95 06/14/21 12:16 82 100 06/14/21 12:11 83 100 06/14/21 12:06 82 100 06/14/21 12:03 80 93 06/14/21 12:01 82 99 06/14/21 11:56 84 98 06/14/21 11:51 79 98 06/14/21 11:46 87 100 06/14/21 11:41 97.8 F 95 H 19 100 06/14/21 11:36 92 H 100 Intake and Output 06/14/21 06/15/21 06/15/21 22:59 06:59 14:59 Intake Total 545.833 240 Output Total 1400 300 Balance -854.167 -60 Intake: IV 185.833 MAGNESIUM SULFATE 40GM/ 185.833 1000ML 40 gm In 1,000 ml @ 2 GM/HR 50 mls/hr IV DIRECT [facility] Rx#:[id number] Oral 240 Intake, Free Water 360 Output: Urine 1400 300 Indwelling Catheter 1000 Void 400 300 Other: Total, Intake Amount 240 Total, Output Amount 400 300 Voiding Method Toilet # Voids Void 1 600 - Exam Lungs: Present: Normal air movement Abdomen: Present: other (deferred pt sleeping) Incision: Present: other (see previous note. deferred as pt was resting at this time) - Labs Labs: Abnormal lab results 06/14/21 Range/Units 14:52 Magnesium 5.80 H (1.7-2.3) mg/dL AST 53 H (5-40) units/L ALT 73 H (7-56) units/L
[2021-06-15] MEDS: IBUPROFEN 800 MG TAB PO PRN (11:58)
[2021-06-15] MEDS ORDERED: NIFEdipine XL 30 MG TAB PO SCH (23:57)
--- NOTE | 2021-06-16 | Event Note ---
Date: 06/15/21 Pt noted to have elevated blood pressures in the sever range at this time. Will add procardia xl 30 mg q day to the labetalol 300mg bid started earlier today.
--- NOTE | 2021-06-16 07:24 | Progress Note ---
Assessment and Plan - Patient Problems (1) Pre-eclampsia, Current Visit: Yes Status: Acute Plan to address problem: -bp well controlled -LFT trending downward f/u out p -d/c home today (2) delivery delivered Current Visit: No Status: Acute Subjective - Subjective Date of service: 06/16/21 Principal diagnosis: Re-admission for pre eclampsia s/p primary c- section, POD#5 Interval history: Pt doing well c/o about having blood pressure checked. Advised that this is what she is admitted for and this will happen until she goes home. I d/w pt home monitoring and taking both blood pressure medicines. She is to make apt in one week for blood pressure check. Patient reports: appetite normal, voiding normally, pain well controlled Objective - Vital Signs Latest vital signs: Vital Signs Temp Pulse Resp BP BP Pulse Ox Pulse Ox 06/16/21 06:07 79 18 139/75 97 06/16/21 04:31 98.5 F 76 20 145/80 100 06/16/21 00:08 98.1 F 76 18 156/88 99 06/15/21 21:33 66 163/79 06/15/21 21:32 20 06/15/21 21:21 98.5 F 66 20 163/79 06/15/21 19:22 99 06/15/21 16:15 98.6 F 80 20 146/69 06/15/21 08:59 71 147/83 06/15/21 08:30 98.1 F 71 20 147/85 96 96 06/15/21 07:45 81 100 06/15/21 07:42 80 L 06/15/21 07:40 71 100 06/15/21 07:38 70 123/68 06/15/21 07:35 73 100 06/15/21 07:30 75 100 06/15/21 07:25 68 100 Intake and Output 06/15/21 06/16/21 06/16/21 22:59 06:59 14:59 Intake Total 480 480 Balance 480 480 Intake: Oral 240 Intake, Free Water 240 480 Other: Total, Intake Amount 240 # Voids Void 1 1 - Exam Cardiovascular: Present: Normal S1, Normal S2 Lungs: Present: Normal air movement Abdomen: Present: normal appearance, soft, normal bowel sounds. Absent: distention, tenderness, guarding Uterus: Present: normal, firm. Absent: bogginess, tenderness Extremities: Present: normal. Absent: tenderness, edema Incision: Present: normal, dry, intact
--- NOTE | 2021-06-16 07:25 | Discharge Summary ---
Providers - Providers Date of Admission: 06/13/21 15:39 Date of discharge: 06/16/21 Attending physician: CELESTINA VARGAS Primary care physician: CELESTINA VARGAS Hospitalization Reason for admission: other (PP pre E) Discharge diagnosis: other (pp pre E) Hospital course: Pt admitted for pp pre E. She is s/p magnesium sulfate x 24 hrs. She was stared on labetalol 300mg po bid and procardia xl 30mg q day and currently has good bp control. She will check bps at home and f/u in office in one week for bp check. Condition at discharge: Good Disposition: DC-01 TO HOME OR SELFCARE - Discharge Diagnoses (1) Pre-eclampsia, Status: Acute (2) delivery delivered Status: Acute Comment: RTO 1 week postop Plan - Discharge Medications Prescriptions: labetaloL [Labetalol 100mg TAB] 300 mg PO BID #60 tablet NIFEdipine XL [Procardia Xl] 30 mg PO QDAY #30 tablet - Provider Discharge Summary Additional instructions: [] Smoking cessation referral if applicable(refer to patient education folder for contact #) [] Refer to [facility] Booklet Call your doctor immediately for: * Fever > 100.5 * Heavy vaginal bleeding ( >1 pad per hour) * Severe persistent headache * Shortness of breath * Reddened, hot, painful area to leg or breast * Drainage or odor from incision. * Keep incision clean and dry at all times and follow doctor's instructions regarding bathing/showering - Follow up plan Follow up: CELESTINA VARGAS MD [Primary Care Provider] - 7 Days
[2021-06-16] MEDS: HYDROcodone/ACETAMINOPHEN 5-325 MG TAB PO PRN (08:22)
[2021-06-16] MEDS: PRENATAL VIT27-FE FUMARATE-FOLIC ACID VIT TAB PO SCH (10:08)
[2021-06-16 10:09] VITALS: BP 119/69
== END 2021-06-16 11:05 | disposition home or self-care (01) | DRG 776 ==
LOC: UNDOADMIN 15:15 → 3A 15:15 → LD 15:39 → OB 06-15 09:33
PROVIDERS: ADMIT Obstetrics & Gynecology; ATTEND Obstetrics & Gynecology
DX: O14.95 Unspecified pre-eclampsia, complicating the puerperium (principal); Z20.822 Contact with and (suspected) exposure to COVID-19
CPT/HCPCS: 36415; 81001; 82565; 83615; 83735; 84450; 84460; 84550; 85027; 87086; G0378; J0360; J3475; J7120; U0003